=== PATIENT | female | born 1940 | race Caucasian/White ===

== ENCOUNTER 2019-08-25 09:19 | Outpatient (CLI) | payer MEDICARE, SELFPAY ==
--- NOTE | 2019-08-25 09:26 | XR_ITS ---
WS: [id number] DEXA (DUAL ENERGY X-RAY ABSORPTIOMETRY) Bone mineral density was performed using a Paratek machine. HISTORY: OSTEOPOROSIS COMPARISON: None available. Lumbar spine BMD (L1-L4): 1.053 g/cm2 T score: -1.1 Z score: 1.2 Total hip BMD: Left: 0.819 g/cm2. T score: -1.5 Z score: 0.9 Right: 0.787 g/cm2. T score: -1.8 Z score: 0.6 10 year probability of a major osteoporotic fracture is 25%. Mild RIGHT convex curvature of the lumbar spine. XR/XR DEXA axial skeleton* [id number] IMPRESSION: OSTEOPENIA based upon the WHO classification for females.
== END 2019-08-25 09:20 | disposition home or self-care (01) ==
LOC: RADWPI 09:25
PROVIDERS: Family Provider Nurse Practitioner Family; PCP Physician Assistant; Visit Provider Physician Assistant
DX: M81.0 Age-related osteoporosis without current pathological fracture (principal); M85.80 Other specified disorders of bone density and structure, unspecified site
CPT/HCPCS: 77080

== ENCOUNTER → 2020-05-12 12:54 | Outpatient (BNVA) | payer MEDICARE, SELFPAY | PROVIDERS: Family Provider Nurse Practitioner Family; PCP Physician Assistant; Visit Provider Internal Medicine Rheumatology | DX: M19.041 Primary osteoarthritis, right hand (principal); Z79.899 Other long term (current) drug therapy; Z11.59 Encounter for screening for other viral diseases; Z11.1 Encounter for screening for respiratory tuberculosis; M19.042 Primary osteoarthritis, left hand; R79.82 Elevated C-reactive protein (CRP); R70.0 Elevated erythrocyte sedimentation rate | CPT/HCPCS: 36415; 82306; 86480; 86704; 86803; 87340; 99204 ==

== ENCOUNTER 2020-05-16 14:11 | Outpatient (CLI) | payer MEDICARE, SELFPAY ==
--- NOTE | 2020-05-16 14:21 | XR_ITS ---
WS: [id number] LEFT HAND: 3 VIEW(S) TECHNIQUE: PA, oblique and lateral. HISTORY: rheumatoid arthritis COMPARISON: None available. No acute fracture or dislocation. Moderate diffuse interphalangeal joint space narrowing. No metacarpal head erosions. Severe degenerat lary changes at the first metacarpal phalangeal joint. No subluxation. XR/XR hand LT min 3V* [id number] IMPRESSION: Moderately severe changes of osteoarthritis. No erosions.
--- NOTE | 2020-05-16 14:21 | XR_ITS ---
WS: [id number] RIGHT HAND: 3 VIEW(S) TECHNIQUE: PA, oblique and lateral. HISTORY: rheumatoid arthritis COMPARISON: None available. No acute fracture or dislocation. Moderate interphalangeal joint space narrowing. There is also mild narrowing at the metacarpal phalan geal joint spaces. Slight subluxation involving the third metacarpal phalangeal joint. Advanced degen erative changes of osteoarthritis at the first carpometacarpal joint. XR/XR hand RT min 3V* [id number] IMPRESSION: 1. Moderate osteoarthritis. 2. Degenerative changes at the metacarpal phalangeal joints. Joint space narro wing and partial subluxation at the third joint. These may be early changes of arthritis.
--- NOTE | 2020-05-16 14:21 | XR_ITS ---
WS: [id number] RIGHT FOOT: 3 VIEW(S) TECHNIQUE: AP, oblique and lateral. HISTORY: rheumatoid arthritis COMPARISON: None available. Hallux valgus deformity. Mild osteopenia. No erosions at the metatarsal heads. Mild narrowing of the interphalangeal joint spaces. Normal tarsal/metatarsal alignment. No soft tissue abnormality or bone destruction. Peripheral arterial calcifications. XR/XR foot RT min 3V* [id number] IMPRESSION: Osteopenia and mild hallux valgus deformity. No erosions.
--- NOTE | 2020-05-16 14:21 | XR_ITS ---
WS: [id number] LEFT FOOT: 3 VIEW(S) TECHNIQUE: AP, oblique and lateral. HISTORY: rheumatoid arthritis COMPARISON: None available. No acute fracture or dislocation. Normal tarsal/metatarsal alignment. Mild cortical indistinctness involving the fifth metatarsal head. Mild narrowing of the first metacar pal phalangeal joint. XR/XR foot LT min 3V* [id number] IMPRESSION: Early changes of possible rheumatoid arthritis at the fifth metacarpal head.
--- NOTE | 2020-05-16 14:21 | XR_ITS ---
WS: [id number] CHEST 2 VIEWS HISTORY: rheumatoid arthritis COMPARISON: 09/24/2014 Lungs: Clear with no abnormality. No pleural effusion or pneumothorax. Cardiac size: Normal. Mediastinum/Aorta: Mild atherosclerosis aorta. Moderate-sized hiatal hernia. Bones: Osteoporotic compression fracture by 50% at L1. XR/XR chest 2V* [id number] IMPRESSION: 1. Moderate-sized hiatal hernia. 2. No pulmonary nodules. 3. Chronic L1 compression fracture.
== END 2020-05-16 14:12 | disposition home or self-care (01) ==
LOC: RADWPI 14:16
PROVIDERS: PCP Physician Assistant; Visit Provider Internal Medicine Rheumatology
DX: M06.9 Rheumatoid arthritis, unspecified (principal); S32.010A Wedge compression fracture of first lumbar vertebra, initial encounter for closed fracture; X58.XXXA Exposure to other specified factors, initial encounter; M19.042 Primary osteoarthritis, left hand; M19.041 Primary osteoarthritis, right hand; M85.871 Other specified disorders of bone density and structure, right ankle and foot; K44.9 Diaphragmatic hernia without obstruction or gangrene; M20.11 Hallux valgus (acquired), right foot
CPT/HCPCS: 71046; 73130; 73630

== ENCOUNTER → 2020-08-22 14:55 | Outpatient (BNVA) | payer MEDICARE, SELFPAY | PROVIDERS: PCP Physician Assistant; Visit Provider Internal Medicine Rheumatology | DX: M06.00 Rheumatoid arthritis without rheumatoid factor, unspecified site (principal); Z79.899 Other long term (current) drug therapy; R79.82 Elevated C-reactive protein (CRP); R70.0 Elevated erythrocyte sedimentation rate; M19.041 Primary osteoarthritis, right hand; M19.042 Primary osteoarthritis, left hand | CPT/HCPCS: 36415; 80076; 82306; 82565; 85025; 86140; 99214 ==

== ENCOUNTER 2023-10-25 16:51 | Emergency (ER) | payer MEDICARE, SELFPAY ==
[2023-10-25 16:55] VITALS: BP 224/68; PULSE 78; RESP 18; TEMP 36.6; O2SAT 97
--- NOTE | 2023-10-25 17:49 | ECG_ITS ---
[facility] Test Date: 2023-10-25 Pat Name: Betty Shaffer Department: Room: Gender: Female Delivery Room Supervisor: : 1940 Requested By: Janet Lal Order Number: [id number] Nieves MD: Bebeto Beckett M.D. Measurements Intervals Donald Rate: 74 P: 41 GA: 149 QRS: 24 QRSD: 131 T: 0 QT: 398 QTc: 444 Interpretive Statements SINUS RHYTHM WITH OCCASIONAL VENTRICULAR PREMATURE COMPLEXES POSSIBLE LEFT ATRIAL ENLARGEMENT [-0.1mV P-WAVE IN V1/V2] INTRAVENTRICULAR CONDUCTION DELAY [130+ ms QRS DURATION] Compared to ECG 09/24/2014 15:15:41 Ventricular premature complex(es) now present Intraventricular conduction delay now present Right bundle-branch block no longer present Electronically Signed On 10-25-2023 23:12:11 CDT by Bebeto Beckett M.D. [id number] f
--- NOTE | 2023-10-25 17:49 | XRR_ITS ---
PROCEDURE INFORMATION: Exam: XR Chest Exam date and time: 10/25/2023 7:18 PM Age: 82 years old Clinical indication: Patient HX: C/O hypertension the past few days. TECHNIQUE: Imaging protocol: Radiologic exam of the chest. Views: 1 view. COMPARISON: CR XR chest 2V* [id number] 05/16/2020 2:26 PM FINDINGS: Lungs: Unremarkable. No consolidation. Pleural spaces: Unremarkable. No pleural effusion. No pneumothorax. Heart/Mediastinum: Hiatal hernia again noted. Bones/joints: Unremarkable. XR/XR chest 1V [id number] IMPRESSION: 1. No acute findings. 2. Hiatal hernia again noted.
[2023-10-25 18:40] VITALS: BP 200/68
[2023-10-25 18:57] LABS: Basophils % 0.8 %; Eosinophils # 0.1 10^3/uL (0.0-0.8); Eosinophils % 2.5 %; Hematocrit 38.2 % (36-47); Lymphocytes # 1.2 10^3/uL (0.8-4.8); Lymphocytes % 32.6 %; Mean Corpuscular HGB Conc 31.4 g/dL (30-55); Mean Corpuscular Hemoglobin 27.6 pg (27-33); Mean Platelet Volume 9.1 fL (7.4-10.4); Monocytes # 0.3 10^3/uL (0.2-0.9); Monocytes % 8.2 %; Neutrophils # 2.03 10^3/uL (1.8-7.7); Neutrophils % 55.6 %; Nucleated Red Blood Cells % 0 %; Platelet Count 282 10^3/cmm (157-399); Red Blood Count 4.34 10^6/uL (3.85-5.65); Red Cell Distribution Width 14.5 % (12.1-15.1); White Blood Count 3.65 10^3/uL (3.29-11.43)
[2023-10-25 19:14] LABS: Anion Gap 14.8 (5-19); Blood Urea Nitrogen 12 mg/dL (8-23); Calcium 9.8 mg/dL (8.5-10.5); Carbon Dioxide 28 mmol/L (22-29); Chloride 101 mmol/L (98-107); Creatinine Clr Calc Pharmacy 41.3935; Glucose 96 mg/dL (65-115); Osmolality Calculated 290 mOsm/kg (285-295); Potassium 3.8 mmol/L (3.5-5.1); Sodium 140 mmol/L (136-145)
[2023-10-25] MEDS: hyDRALAzine 20 mg/mL INJ 1 mL IVP (19:16)
[2023-10-25 19:17] LABS: Troponin(5th) Baseline 9 ng/L (0-10)
--- NOTE | 2023-10-25 19:30 | W.ED.GENADLT ---
HPI - General Adult General: Chief complaint: General Medical Stated complaint: elevated bp Time Seen by Provider: 10/25/23 19:00 History of Present Illness: Patient presents to the ER with complaints of high blood pressure dizziness lightheadedness. Patient denies shortness of breath and chest pain. Patient was noted at her last PCPs visit to have a blood pressure greater than 200. This was approximately 3 days ago. Patient was started on amlodipine 5 mg which daily which she has taken for the last 3 days. Upon talking to the patient at her previous ENT visit approximately 1 month ago her blood pressure was greater than 180. Patient also says she is under a lot of stress and has a lot of tension in her neck and has a tension headache. Review of Systems General: Reports: 10 or more systems reviewed and unremarkable except in HPI and below PFSH ED PFSH: Medical History Cellulitis of foot, left Swelling of left foot Osteopenia after menopause Osteoarthritis of hands, bilateral Elevated erythrocyte sedimentation rate Elevated C-reactive protein (CRP) Inflammatory arthritis Osteoporosis Joint pain Thyroid disease Vulva neoplasm surgical excision 2012 Surgical History History of hysterectomy History of knee surgery right Family History Other CAD (coronary artery disease) Hyperlipidemia Hypertension Rheumatoid arthritis Stroke Denies family history of Diabetes Lupus Chronic kidney disease (CKD) Cancer Social History Smoking and tobacco/nicotine status: never used tobacco/nicotine Alcohol intake: never Physical Exam Const: COMMON NORMALS: no acute distress, average body habitus, patient oriented x3, no limitations, healthy appearing, alert and well nourished HENMT: COMMON NORMALS: normocephalic, atraumatic, hearing grossly normal bilaterally, external ears normal, Normal external nose present, moist oral mucous membranes and oropharynx normal HEAD & SCALP: normocephalic and atraumatic NOSE: Normal external nose present EXTERNAL EAR: Yes external ears normal Neck/C-Spine: COMMON NORMALS: full ROM, no lymphadenopathy, supple (Tenderness along paraspinal musculature), no meningeal signs, no JVD and Thyroid normal THYROID: Thyroid normal Chest: COMMONS NORMALS: normal inspection of the chest and normal palpation of entire chest wall Resp: COMMON NORMALS: normal respiratory effort, No retractions, No use of accessory muscles and clear to auscultation bilaterally AUSCULTATION: clear to auscultation bilaterally Cardio: COMMON NORMALS: no JVD, regular rate, regular rhythm, S1 normal heart sound present, S2 normal heart sound present, No gallops present (Cardio), No clicks present (Cardio), No murmurs present (Cardio) and No rub (Cardio) RATE: regular rate RHYTHM: regular rhythm HEART SOUNDS: S1 normal heart sound present and S2 normal heart sound present GI: COMMON NORMALS: Normal to inspection, nondistended, normoactive bowel sounds present, Soft to palpation, non-tender and No hepatosplenomegaly present PALPATION: Yes Soft to palpation and Yes No hepatosplenomegaly present Neuro: COMMON NORMALS: patient oriented x3 SENSORIUM/ORIENTATION: Yes alert MENINGEAL SIGNS: Yes no meningeal signs Course Vital Signs: Vital signs: Vital Signs Temperature 97.9 F 10/25/23 16:55 Pulse Rate 92 10/25/23 20:04 Respiratory Rate 16 10/25/23 20:04 Blood Pressure 143/70 10/25/23 20:17 Pulse Oximetry 98 10/25/23 20:17 Oxygen Delivery Me thod Room Air 10/25/23 19:39 [facility] - General Adult Medical Decision Making Physical exam was performed lab work was noted all which was essentially benign. Patient's blood pressure upon arrival was 224/68. Patient was given 20 mg of hydralazine IV which lowered her blood pressure 155/72. Patient was given 15 mg Toradol for her headache. Her headache was a tension type headache. We will double the patient's amlodipine to 10 mg a day and put her on a 0.1 mg clonidine 1 p.o. every 6 hours as needed blood pressure greater than 160. Patient should keep her appointment with her PCP already scheduled in approximately 5 days. Differential Diagnosis High blood pressure, headache Medical Records I reviewed the patient's medical records. Lab Data I reviewed the patient's lab results. 10/25/23 18:36 10/25/23 18:36 Radiology Impressions Chest X-Ray 10/25/23 17:49 IMPRESSION: 1. No acute findings. 2. Hiatal hernia again noted. Laboratory Results WBC 3.65 10^3/uL (3.29-11.43) 10/25/23 18:36 RBC 4.34 10^6/uL (3.85-5.65) 10/25/23 18:36 Hgb 12.00 g/dL (11.27-16.99) 10/25/23 18:36 Hct 38.2 % (36-47) 10/25/23 18:36 MCV 88.0 fl (85-98) 10/25/23 18:36 MCH 27.6 pg (27-33) 10/25/23 18:36 MCHC 31.4 g/dL (30-55) 10/25/23 18:36 RDW 14.5 % (12.1-15.1) 10/25/23 18:36 Plt Count 282 10^3/cmm (157-399) 10/25/23 18:36 MPV 9.1 fL (7.4-10.4) 10/25/23 18:36 Neut % (Auto) 55.6 % 10/25/23 18:36 Lymph % (Auto) 32.6 % 10/25/23 18:36 Nicollet % (Auto) 8.2 % 10/25/23 18:36 Eos % (Auto) 2.5 % 10/25/23 18:36 Baso % (Auto) 0.8 % 10/25/23 18:36 Neut # (Auto) 2.03 10^3/uL (1.8-7.7) 10/25/23 18:36 Lymph # (Auto) 1.2 10^3/uL (0.8-4.8) 10/25/23 18:36 Nicollet # (Auto) 0.3 10^3/uL (0.2-0.9) 10/25/23 18:36 Eos # (Auto) 0.1 10^3/uL (0.0-0.8) 10/25/23 18:36 Baso # (Auto) 0.0 10^3/uL (0.0-0.1) 10/25/23 18:36 Nucleated RBC % (auto) 0 % 10/25/23 18: Nucleated RBCs # 0.0 /100WBC 10/25/23 18:36 Sodium 140 mmol/L (136-145) 10/25/23 18:36 Potassium 3.8 mmol/L (3.5-5.1) 10/25/23 18:36 Chloride 101 mmol/L (98-107) 10/25/23 18:36 Carbon Dioxide 28 mmol/L (22-29) 10/25/23 18:36 Anion Gap 14.8 (5-19) 10/25/23 18:36 BUN 12 mg/dL (8-23) 10/25/23 18:36 Creatinine 0.6 mg/dL (0.5-0.9) 10/25/23 18:36 GFR Calculation Not Reportable 10/25/23 18:36 Glucose 96 mg/dL (65-115) 10/25/23 18:36 Calculated Osmolality 290 mOsm/kg (285-295) 10/25/23 18:36 Calcium 9.8 mg/dL (8.5-10.5) 10/25/23 18:36 Troponin T Baseline 9 ng/L (0-10) 10/25/23 18:36 Urine Color Light yellow (Yellow) 10/25/23 19:15 Urine Appearance Clear (CLEAR) 10/25/23 19:15 Urine pH 7 (5-7) 10/25/23 19:15 Ur Specific Donnellson 1.005 (1.005-1.030) 10/25/23 19:15 Urine Protein Neg (Negative) 10/25/23 19:15 Urine Glucose (UA) Norm (Normal) 10/25/23 19:15 Urine Ketones Negative (Negative) 10/25/23 19:15 Urine Blood Neg (Negative) 10/25/23 19:15 Urine Nitrate Negative (Negative) 10/25/23 19:15 Urine Bilirubin Neg (Negative) 10/25/23 19:15 Urine Urobilinogen Neg mg/dL (Negative) 10/25/23 19:15 Ur Leukocyte Esterase Negative (Negative) 10/25/23 19:15 Urine RBC 0-4 /hpf (0-2) H 10/25/23 19:15 Urine WBC 0-4 /hpf (0-5) H 10/25/23 19:15 Ur Squamous Epith Cells 0-4 /hpf (0-5) H 10/25/23 19:15 Amorphous Sediment Not Reportable 10/25/23 19:15 Urine Bacteria Trace /hpf (NONE) 10/25/23 19:15 Urine Mucus Trace /hpf 10/25/23 19:15 All radiology interpretation(s) finalized by discharge Discharge Plan Discharge Patient Disposition: Home Clinical Impression: Tension headache Hypertension Qualifiers: Hypertension type: unspecified Qualified Code(s): I10 - Essential (primary) hypertension Condition: Stable Prescriptions: New clonidine HCl 0.1 mg tablet 0.1 mg PO Q4H PRN (Reason: Blood pressure greater than 160/100) Qty: 30 0RF No Action levocetirizine 5 mg tablet 5 mg PO DAILY hydroxychloroquine 200 mg tablet 200 mg PO DAILY sertraline 50 mg tablet 50 mg PO DAILY azelastine 137 mcg (0.1 %) aerosol,spray 2 spray intranasal fluticasone propionate 50 mcg/actuation spray,suspension 1 spray intranasal DAILY Rx Instructions: administer into each nostril levothyroxine 75 mcg tablet 75 mcg PO prednisone 20 mg tablet 40 mg PO DAILY 3 Days Qty: 6 0RF amoxicillin-pot clavulanate [Augmentin] 500-125 mg tablet 1 tab PO BID Qty: 14 0RF diclofenac sodium 1 % gel 4 g topical QID Qty: 100 3RF Rx Instructions: apply to affected area as needed Discharge Orders: Discharge ED (Routine); Ordered 10/25/23 Ordered By: Estevan Zapata Referrals: Lakisha Ya PA [Primary Care Provider] - 1 week Patient Instructions: Tension Headache (ED), Hypertension in the Older Adult (ED) Activity Restrictions/Additional Instructions: Your blood pressure in the eye was significantly elevated at 224 mmHg systolic. You are given 20 mg of hydralazine and your IV which lowered it to 155/72, you are sent home with 2 tablets of 0.1 mg clonidine to take if your blood pressure was greater than 160/100 and you will be provided with a prescription for more of these. You are also suggested to increase your amlodipine from 5 mg to 10 mg. Please keep your appointment with Lakisha Ya as already scheduled. Please keep a blood pressure log and take it with you to that appointment. Coding Level of Care Code ED Custom Feed Mill Operator for Lorenzo Beck
[2023-10-25 19:34] LABS: Bacteria Urine TRACE /hpf; Bilirubin Urine Neg (Negative); Blood Urine Neg (Negative); Glucose Urine UA Norm (Normal); Ketones Urine Negative (Negative); Leukocyte Esterase Urine Negative (Negative); Mucus Urine TRACE /hpf; Nitrate Urine Negative (Negative); Protein Urine Neg (Negative); RBC Urine 0-4 /hpf (0-2); Specific Gravity, Urine 1.005 (1.005-1.030); Squamous Epithelial Cell Urine 0-4 /hpf (0-5); Urine Appearance Clear (CLEAR); Urine Color Light yellow (Yellow); Urobilinogen Urine Neg (Negative); WBC Urine 0-4 /hpf (0-5); pH Urine 7 (5-7)
[2023-10-25 19:39] VITALS: BP 155/72; PULSE 96; RESP 18; O2SAT 96
[2023-10-25] MEDS: ketorolac 30 mg/mL INJ 15 MG IVP (19:44)
--- NOTE | 2023-10-25 19:47 | PC.NURSE ---
Patient c/o neck pain that she reports as chronic in nature. Reports that she usually takes Ibu at home.
[2023-10-25 20:04] VITALS: BP 143/62; PULSE 92; RESP 16; O2SAT 96
[2023-10-25 20:17] VITALS: BP 143/70; O2SAT 98
== END 2023-10-25 20:18 | disposition home or self-care (01) ==
PROVIDERS: Emergency Medicine; Emergency Provider Emergency Medicine; PCP Physician Assistant
DX: G44.209 Tension-type headache, unspecified, not intractable (principal); I10 Essential (primary) hypertension
CPT/HCPCS: 36415; 71045; 80048; 81001; 84484; 85025; 93005; 96374; 96375; 99285; J0360; J1885

== ENCOUNTER → 2024-03-27 10:44 | Outpatient (BNVA) | payer MEDICARE, SELFPAY | PROVIDERS: PCP Family Medicine; Visit Provider Family Medicine | DX: E03.9 Hypothyroidism, unspecified (principal) | CPT/HCPCS: 80053; 84439; 84443; 85025 ==

== ENCOUNTER → 2024-05-11 09:20 | Outpatient (BNVA) | payer MEDICARE, SELFPAY | PROVIDERS: PCP Family Medicine; Visit Provider Family Medicine | DX: I10 Essential (primary) hypertension (principal) | CPT/HCPCS: 80048 ==

== ENCOUNTER → 2025-03-05 09:28 | Outpatient (BNVA) | payer MEDICARE, SELFPAY | PROVIDERS: PCP Family Medicine; Visit Provider Family Medicine | DX: E03.9 Hypothyroidism, unspecified (principal); I10 Essential (primary) hypertension | CPT/HCPCS: 80053; 80061; 84439; 84443; 85025 ==

== ENCOUNTER → 2025-03-24 14:18 | Outpatient (BNVA) | payer MEDICARE, SELFPAY | PROVIDERS: PCP Family Medicine; Visit Provider Nurse Practitioner Family | DX: M06.9 Rheumatoid arthritis, unspecified (principal); I99.8 Other disorder of circulatory system; L57.8 Other skin changes due to chronic exposure to nonionizing radiation; L81.4 Other melanin hyperpigmentation; L82.1 Other seborrheic keratosis; L57.0 Actinic keratosis | CPT/HCPCS: 17000; 99203 ==

== ENCOUNTER 2025-04-15 10:38 | Emergency (ER) | payer MEDICARE, SELFPAY ==
--- OUTSIDE RECORDS SUMMARY | 2025-04-15 10:45 | XMS_ITS | Encounter Summary ---
Author Organization [facility] Address [address] [place] [address] Care Team Providers Care Transportation Associate Name Role Phone HAYLEE Moura Sr., Govind Tejeda Primary Care Pro vider Encounter Details Date Type Department Care Team (Latest Contact Info) Description 04/20/2014 Ancillary Orders [facility] Pre-Registration [place] CALL TO MAKE APPOINTMENT ONLY [address] [place] [address] Dawson Fajardo MD NO ADDRESS ON FILE Other screening mammogram (Primary Dx); Lump or mass in breast Social History Tobacco Use Types Packs/Day Years Used Date Smoking Tobacco: Former Smokeless Tobacco: Never Alcohol Use Standard Drinks/Week Comments Yes 5.8 (1 standard drink = 0.6 oz p ure alcohol) Comments No Sex and Gender Information Value Date Recorded Sex Assigned at Not on file Legal Sex Female 3:34 AM PATENT CHEMIST Gender Identity Not on file Sexual Orientation Not on file Occupation Industry Job Start Date Job End Date Not on file Not on file Not on file Not on file Not on file Not on file Not on file Not on file documented as of this encounter Plan of Treatment Not on file documented as of this encounter Visit Diagnoses Diagnosis Other screening mammogram- Primary Lump or mass in breast documented in this encounter Care Teams Transportation Associate Relationship Specialty Start Date End Date Govind Moura Sr., FNP [address] [place] [address] PCP - General NURSE PRACTITIONER 05/11/16 documented as of this encounter
--- OUTSIDE RECORDS SUMMARY | 2025-04-15 10:45 | XMS_ITS | Encounter Summary ---
Author Organization [facility] Address [address] [place] [address] Care Team Providers Care Labor Contract Analyst Name Role Phone Martell Tadeo, HAYLEE, Govind Tejeda Primary Care Pro vider Reason for Referral * Outpatient Services (Routine) - Closed Specialty Diagnoses / Procedures Referred By Contac t Referred To Contact Diagnoses Other screening mammogram Procedures MAMMO DIGITAL SCREEN BILAT Dawson Fajardo MD NO ADDRESS ON FILE Dawson Fajardo MD Referral ID Status Reason Start Date Expiration Date Visits Re quested Visits Authorized [id number] Closed 04/02/2012 04/02/2013 1 1 Encounter Details Date Type Department Care Team (Latest Contact Info) Description 04/02/2012 Ancillary Orders [facility] Pre-Registration [place] CALL TO MAKE APPOINTMENT ONLY [address] [place] [address] Dawson Fajardo MD NO ADDRESS ON FILE Other screening mammogram Social History Tobacco Use Types Packs/Day Years Used Date Smoking Tobacco: Former Alcohol Use Standard Drinks/Week Comments No 0 (1 standard drink = 0.6 oz pur e alcohol) Comments No Sex and Gender Information Value Date Recorded Sex Assigned at Not on file Legal Sex Female 3:34 AM PT SKILLED Gender Identity Not on file Sexual Orientation Not on file Occupation Industry Job Start Date Job End Date Not on file Not on file Not on file Not on file documented as of this encounter Plan of Treatment Not on file documented as of this encounter Results * MAMMO DIGITAL SCREEN BILAT (04/29/2012 8:59 AM CDT) Anatomical Region Laterality Modality Breast Bilateral Mammography Narrative 04/30/2012 2:03 PM CDT Bilateral Mammogram Reason for Exam: Screening Comparison: Comparison is made with the prior exam(s) dated 04.14.07 04.25.11 Findings: Bilateral CC and MLO views were obtained. This examination was reviewed with the aid of a computer-aided detection system(CAD). The breast tissue density is average. No significant new findings since the prior mammogram(s). Procedure Note Mary Dias MD - 04/30/2012 Bilateral Mammogram Reason for Exam: Screening Comparison: Comparison is made with the prior exam(s) dated 04.14.710 Findings: Bilateral CC and MLO views were obtained. This examination was reviewed with the aid of a computer-aided detectionsystem(CAD). The breast tissue density is average. No significant new findings since the prior mammogram(s). Dawson Fajardo MD MAMMO ORDERABLES Final Result documented in this encounter Visit Diagnoses Diagnosis Other screening mammogram Other screening mammogram documented in this encounter Care Teams Labor Contract Analyst Relationship Specialty Start Date End Date Martell Tadeo, HAYLEE [address] [place] [address] PCP - General NURSE PRACTITIONER 05/11/16 documented as of this encounter
--- OUTSIDE RECORDS SUMMARY | 2025-04-15 10:45 | XMS_ITS | Clinical Summary ---
Author Organization [facility] Address [address] [place]: Epic Prelude ADT [place] [address] Care Team Providers Care Echo Vascular Technologist Name Role Phone Martell Tadeo, HAYLEE, Govind Tejeda Primary Care Pro vider Allergies Active Allergy Reactions Criticality Noted Date Comments Atorvastatin Muscle Pain Low 12/02/2007 Rofecoxib Rash Low 12/02/2007 Sulfa (Sulfonamide Antibiotics) Unknown 11/13 Active Problems Problem Noted Date Diagnosed Date Unspecified hypothyroidism 12/02/2007 Immunizations Immunization Administration Dates Next Due (PNEUMOVAX 23)(50 YRS UP) PN EUMOCOCCAL POLYSACCHARIDE (PPV23) 0.5 ML, IM 03/26/2003 (TDVAX)(7 YRS UP) TETANUS AN D DIPHTHERIA TOXOIDS, ADSORBED (2 LF OF TETANUS TOXOID AND 2 LF OF DIPHTHERIA TOXOID), 0.5ML (PF), IM 03/26/2003 Family History Medical History Relation Name Comments Breast Cancer Other 1 M Aunt age 60's risk assessment to genetic counselor -see media tab Breast Cancer Other 2 M Cousins age: 40's Ovarian Cancer Neg Hx Relation Name Status Comments Other 1 M Aunt Other 2 M Cousins Social History Tobacco Use Types Packs/Day Years Used Date Smoking Tobacco: Former Smokeless Tobacco: Never Alcohol Use Standard Drinks/Week Comments Yes 5.8 (1 standard drink = 0.6 oz p ure alcohol) Comments Unknown Sex and Gender Information Value Date Recorded Sex Assigned at Not on file Legal Sex Female 5:[address]ER Gender Identity Not on file Sexual Orientation Not on file Plan of Treatment Health Maintenance Due Date Last Done Comments ZOSTER VACCINE (1 of 2) 1988 DTAP/TDAP/TD VACCINES (1 - Tdap) 03/27/2003 03/26/20 03 PNEUMOCOCCAL VACCINE 50+ YEA RS (2 of 2 - PCV) 03/26/2004 03/26/2003 OSTEOPOROSIS SCREENING 08/13/2012 08/13/2007, 2007 RSV VACCINE (60+ or ) (1 - 1-dose 75+ series) 2013 INFLUENZA VACCINE (#1) 2025 Procedures Procedure Name Priority Date/Time Associated Diagnosis Comments XR DEXA BONE DENSITY AXIAL 1 OR MORE SITES Routine 08/13/2007 10:[address]ANER from Last 3 Months or Most Recently Relevant to Health Maintenance Results * XR DEXA BONE DENSITY AXIAL 1 OR MORE SITES (08/13/2007 10:[address] CLEANER) Anatomical Region Laterality Modality Other Narrative 08/13/2007 10:[address] CLEANER 08/13/2007 Reason for Consultation: Osteopenia. For determination and comparison of bone mineral density. AXIAL DEXA EXAMINATION OF THE LUMBAR SPINE AND LEFT PROXIMAL FEMUR: The following absorptiometry data were obtained. Technical quality of the examinations is satisfactory. Serial examination #2 with comparison to a prior study of 07/24/2005. Images of the lumbar spine demonstrate scoliotic and degenerative changes with spurious elevation of bone density at various levels. Bone density has been reported previously in the upper lumbar spine to minimize effects of spurious elevation. BMD Adult Age-Matched Region g/cm2 T Z L1-L2 0.907 -2.2 -0.2 L1-L4 0.990 -1.6 0.4 Neck 0.797 -1.7 0.1 Total hip 0.923 -0.7 1.0 IMPRESSION: Bone mineral density lies in the markedly osteopenic range in the upper lumbar spine below the average of the patient's age-matched control, fairly stable at all sites in comparison to the previous examination. Bone mineral density lies slightly below the average of the patient's age- matched control. jaw Procedure Note Tristan Downey - 09/28/2022 08/13/2007 Reason for Consultation: Osteopenia. For determination and comparison ofbone mineral density. AXIAL DEXA EXAMINATION OF THE LUMBAR SPINE AND LEFT PROXIMAL FEMUR: The following absorptiometry data were obtained. Technical quality of theexaminations is satisfactory. Serial examination #2 with comparison to a prior study of 07/24/2005. Images of the lumbar spine demonstrate scoliotic and degenerative changeswith spurious elevation of bone density at various levels. Bone density has been reported previously inthe upper lumbar spine to minimize effects of spurious elevation. BMD Adult Age-Matched Region g/cm2 T Z L1-L2 0.907 -2.2 -0.2 L1-L4 0.990 -1.6 0.4 Neck 0.797 -1.7 0.1 Total hip 0.923 -0.7 1.0 IMPRESSION: Bone mineral density lies in the markedly osteopenic range in the upperlumbar spine below the average of the patient's age-matched control, fairly stable at all sites incomparison to the previous examination. Bone mineral density lies slightly below the average of the patient'naina-matched control. jaw us Braulio Pimentel Jr., MD DIAGNOSTIC IMAGING ORDERABL ES Final Result from Last 3 Months or Most Recently Relevant to Health Maintenance Care Teams Echo Vascular Technologist Relationship Specialty Start Date End Date Martell Tadeo, HAYLEE [address] [place] [address] PCP - General NURSE PRACTITIONER 05/11/16
--- OUTSIDE RECORDS SUMMARY | 2025-04-15 10:45 | XMS_ITS | Encounter Summary ---
Author Organization [facility] Address [address] [place] [address] Care Team Providers Care Learning Disabilities Teacher Name Role Phone Martell Tadeo, HAYLEE, Govind Tejeda Primary Care Pro vider Reason for Referral * Outpatient Services (Routine) - Closed Specialty Diagnoses / Procedures Referred By Contac t Referred To Contact Diagnoses Other screening mammogram Procedures MAMMO SCREENING BILAT Dawson Fajardo MD NO ADDRESS ON FILE Referral ID Status Reason Start Date Expiration Date Visits Re quested Visits Authorized [id number] Closed 04/19/2010 10/16/2010 1 1 Encounter Details Date Type Department Care Team (Late st Contact Info) Description 04/19/2010 Ancillary Orders [facility] [address] [id number] Dawson Fajardo MD NO ADDRESS ON FILE Other screening mammogram Social History Tobacco Use Types Packs/Day Years Used Date Smoking Tobacco: Never Assessed Comments No Sex and Gender Information Value Date Recorded Sex Assigned at Not on file 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 This examination was reviewed with the aid of a computer-aided detection system(CAD). The breast tissue density is average. Asymmetric breast tissue is noted. No significant new findings since the prior mammogram(s). Procedure Note Kathleen Andre MD - 04/25/2010 Bilateral Mammogram Reason for Exam: Screening Comparison: Comparison is made with the prior exam(s) dated 04.12.06,04.21.09 Findings: Bilateral CC and MLO views were obtained. This examination was reviewed with the aid of a computer-aided detectionsystem(CAD). The breast tissue density is average. Asymmetric breast tissue is noted. No significant new findings since the prior mammogram(s). Dawson Fajardo MD MAMMO ORDERABLES Final Result documented in this encounter Visit Diagnoses Diagnosis Other screening mammogram Other screening mammogram documented in this encounter Care Teams Learning Disabilities Teacher Relationship Specialty Start Date End Date Martell Tadeo, HAYLEE [address] [place] [address] PCP - General NURSE PRACTITIONER 05/11/16 documented as of this encounter
--- OUTSIDE RECORDS SUMMARY | 2025-04-15 10:45 | XMS_ITS | Encounter Summary ---
Author Organization [facility] Address [address] [place] [address] Care Team Providers Care Independent Driver Name Role Phone HAYLEE Moura Sr., Michael Dave Primary Care Pro vider Encounter Details Date Type Department Care Team (Late st Contact Info) Description 03/16/[address] 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 This examination was reviewed with the aid of a computer-aided detection system(CAD). The breast tissue density is average. Stable asymmetric tissue right breast. No significant new findings since the prior mammogram(s). Procedure Note Jovanni Frost MD - 04/22/2009 Bilateral Mammogram Reason for Exam: Screening Comparison: Comparison is made with the prior exam(s) dated 2004+2007 Findings: Bilateral CC and MLO views were obtained. This examination was reviewed with the aid of a computer-aided detectionsystem(CAD). The breast tissue density is average. Stable asymmetric tissue right breast. No significant new findings since the prior mammogram(s). us Dawson Fajardo MD MAMMO ORDERABLES Final Result documented in this encounter Visit Diagnoses Diagnosis Other screening mammogram Other screening mammogram documented in this encounter Care Teams Independent Driver Relationship Specialty Start Date End Date Martell Tadeo, HAYLEE [address]oving [address] [place] [address] PCP - General NURSE PRACTITIONER 05/11/16 documented as of this encounter
--- OUTSIDE RECORDS SUMMARY | 2025-04-15 10:45 | XMS_ITS | Encounter Summary ---
Author Organization [facility] Address [address] [place] [address] Care Team Providers Care Principal Biostatistician Name Role Phone HAYLEE Moura Sr., Govind Tejeda Primary Care Pro vider Reason for Referral * Outpatient Services (Routine) - Closed Specialty Diagnoses / Procedures Referred By Contac t Referred To Contact Diagnoses Encounter for screening mammogram for malignant neoplasm of breast Procedures MAMMO DIGITAL SCREEN BILAT Dawson Fajardo MD [facility] Pre-Registration [place] CALL TO MAKE APPOINTMENT ONLY [address] [place] [address] Phone: tel: fax: Referral ID Status Reason Start Date Expiration Date V isits Requested Visits Authorized [id number] Closed [facility] ([facility] 04/28/2015 05/28/2016 1 1 Encounter Details Date Type Department Care Team (Latest Contact Info) Description 04/28/2015 Ancillary Orders [facility] Pre-Registration [place] CALL TO MAKE APPOINTMENT ONLY [address] [place] [address] Dawson Fajardo MD NO ADDRESS ON FILE Encounter for screening mammogram for malignant neoplasm of breast (Primary Dx) Social History Tobacco Use Types Packs/Day Years Used Date Smoking Tobacco: Former Smokeless Tobacco: Never Alcohol Use Standard Drinks/Week Comments Yes 5.8 (1 standard drink = 0.6 oz p ure alcohol) Comments No Sex and Gender Information Value Date Recorded Sex Assigned at Not on file 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 Gender Identity Not on file Sexual Orientation [...] encounter Results * MAMMO DIGITAL SCREEN BILAT (06/06/2015 2:05 PM CDL DEDICATED TRUCK DRIVER) Anatomical Region Laterality Modality Breast Bilateral Mammography Narrative 06/07/2015 9:38 AM CDL DEDICATED TRUCK DRIVER Bilateral Mammogram Reason for Exam: Screening Comparison: Compared to: 05/17/2014 MAMMO DIGITAL SCREEN BILAT, 05/13/2013 MAMMO DIGITAL SCREEN BILAT, 04/29/2012 MAMMO DIGITAL SCREEN BILAT, 04/25/2011 MAMMO DIGITAL SCREEN BILAT, 04/24/2010 MAMMO SCREENING BILAT, 04/21/2009 MAMMO SCREENING BILAT Findings: Bilateral CC and MLO views were obtained. This examination was reviewed with the aid of a computer-aided detection system(CAD). The breast tissue density is average. Asymmetry appears stable.Bilateral breast nodularity is stable. No significant new findings since the prior mammogram(s). Dawson Fajardo MD MAMMO ORDERABLES Final Result documented in this encounter Visit Diagnoses Diagnosis Encounter for screening mammogram for malignant neoplasm of breast- Primary Other screening mammogram Encounter for screening mammogram for malignant neoplasm of breast Other screening mammogram documented in this encounter Care Teams Principal Biostatistician Relationship Specialty Start Date End Date Martell Tadeo, HAYLEE [address] [place] [address] PCP - General NURSE PRACTITIONER 05/11/16 documented as of this encounter
--- OUTSIDE RECORDS SUMMARY | 2025-04-15 10:45 | XMS_ITS | Encounter Summary ---
Author Organization [facility] Address [address] [place] [address] Care Team Providers Care Staple Shear Operator Name Role Phone Martell Tadeo, HAYLEE, Govind Tejeda Primary Care Pro vider Reason for Referral * Outpatient Services (Routine) - Closed Specialty Diagnoses / Procedures Referred By Contac t Referred To Contact Diagnoses Other screening mammogram Procedures MAMMO DIGITAL SCREEN BILAT Dawson Fajardo MD NO ADDRESS ON FILE Referral ID Status Reason Start Date Expiration Date Visits Re quested Visits Authorized [id number] Closed 04/02/2011 04/01/2012 1 1 Encounter Details Date Type Department Care Team (Latest Contact Info) Description 04/02/2011 Ancillary Orders [facility] Pre-Registration [place] CALL TO MAKE APPOINTMENT ONLY [address] [place] [phone] Dawson Fajardo MD NO ADDRESS ON FILE Other screening mammogram Social History Tobacco Use Types Packs/Day Years Used Date Smoking Tobacco: Never Assessed Comments No Sex and Gender Information Value Date Recorded Sex Assigned at Not on file 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 This examination was reviewed with the aid of a computer-aided detection system(CAD). The breast tissue density is average. No significant new findings since the prior mammogram(s). Procedure Note Mary Dias MD - 04/26/2011 Bilateral Mammogram Reason for Exam: Screening Comparison: Comparison is made with the prior exam(s) dated 04.14.07 Findings: Bilateral CC and MLO views were obtained. This examination was reviewed with the aid of a computer-aided detectionsystem(CAD). The breast tissue density is average. No significant new findings since the prior mammogram(s). us Dawson Fajardo MD MAMMO ORDERABLES Final Result documented in this encounter Visit Diagnoses Diagnosis Other screening mammogram Other screening mammogram documented in this encounter Care Teams Staple Shear Operator Relationship Specialty Start Date End Date Martell Tadeo, HAYLEE [address] [place] [address] PCP - General NURSE PRACTITIONER 05/11/16 documented as of this encounter
--- OUTSIDE RECORDS SUMMARY | 2025-04-15 10:45 | XMS_ITS | Encounter Summary ---
Author Organization [facility] Address [address] [place] [address] Care Team Providers Care Radio Mechanic Name Role Phone Martell Tadeo, HAYLEE, Govind Tejeda Primary Care Pro vider Reason for Referral * Outpatient Services (Routine) - Closed Specialty Diagnoses / Procedures Referred By Contac t Referred To Contact Diagnoses Breast cancer screening Procedures MAMMO SCRN BILAT 3D ELVIA W OR WO CAD MAMMO SCREEN BILAT W OR WO CAD Dawson Fajardo MD Referral ID Status Reason Start Date Expiration Date Visits Re quested Visits Authorized [id number] Closed 05/22/2017 06/22/2018 1 1 PERSON Encounter Details Date Type Department Care Team (Latest Contact Info) Description 05/22/2017 Ancillary Orders [facility] Pre-Registration [place] CALL TO MAKE APPOINTMENT ONLY [address] [place] [address] Dawson Fajardo MD NO ADDRESS ON FILE Breast cancer screening Social History Tobacco Use Types Packs/Day Years Used Date Smoking Tobacco: Former Smokeless Tobacco: Never Alcohol Use Standard Drinks/Week Comments Yes 5.8 (1 standard drink = 0.6 oz p ure alcohol) Comments No Sex and Gender Information Value Date Recorded Sex Assigned at Not on file 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 Sex Female 3:34 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 Gender Identity Not on file Sexual Orientation Not on file Occupation Industry Job Start Date Job End Date Not on file Not on file Not on file Not on file Not on file Not on file Not on file Not on file documented as of this encounter Plan of Treatment Not on file documented as of this encounter Results * MAMMO SCRN BILAT 3D ELVIA W OR WO CAD (06/24/2017 1:12 PM DISH PERSON) Anatomical Region Laterality Modality Breast Bilateral Mammography Narrative 06/25/2017 7:46 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 Bilateral Mammogram Reason for Exam: Screening Comparison: Compared to: 06/11/2016 MAMMO DIGITAL SCREEN BILAT, 06/06/2015 MAMMO DIGITAL SCREEN BILAT, 05/17/2014 MAMMO DIGITAL SCREEN BILAT, 05/13/2013 MAMMO DIGITAL SCREEN BILAT, and 04/29/2012 MAMMO DIGITAL SCREEN BILAT Technique: 3D MLO and CC digital tomosynthesis images were acquired and synthesized 2D images (C view) were generated. This digital mammogram was also analyzed by the Computer Aided Detection System CAD). Breast Composition: There are scattered areas of fibroglandular density. There are no suspicious masses, areas of architectural distortions, or microcalcifications to suggest malignancy. No significant new findings since the prior mammogram(s). us Dawson Fajardo MD MAMMO ORDERABLES Final Result documented in this encounter Visit Diagnoses Diagnosis Breast cancer screening Breast screening, unspecified Breast cancer screening Breast screening, unspecified documented in this encounter Care Teams Radio Mechanic Relationship Specialty Start Date End Date Martell Tadeo, HAYLEE Loving [address] [place] [address] PCP - General NURSE PRACTITIONER 05/11/16 documented as of this encounter
--- OUTSIDE RECORDS SUMMARY | 2025-04-15 10:45 | XMS_ITS | Encounter Summary ---
Author Organization [facility] Address [address] [place] [address] Care Team Providers Care Morning Nanny Name Role Phone HAYLEE Moura Sr., Michael Dave Primary Care Pro vider Encounter Details Date Type Department Care Team (Latest Contact Info) Description 07/26/2003 Outpatient [facility] [address] [place] [address] Brendan West MD NO ADDRESS ON FILE PERIPHERAL VERTIGO NOS (Primary Dx); HYPERLIPIDEMIA NEC/NOS; HYPOTHYROIDISM NOS Social History Tobacco Use Types Packs/Day Years Used Date Smoking Tobacco: Never Assessed Comments Unknown Sex and Gender Information Value Date Recorded Sex Assigned at Not on file 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
--- OUTSIDE RECORDS SUMMARY | 2025-04-15 10:45 | XMS_ITS | Encounter Summary ---
Author Organization [facility] Address [address] [place] [address] Care Team Providers Care Community Fundraiser Name Role Phone HAYLEE Moura Sr., Michael Dave Primary Care Pro vider Reason for Referral * Outpatient Services (Routine) - Closed Specialty Diagnoses / Procedures Referred By Contac t Referred To Contact Diagnoses Lump or mass in breast Procedures MAMMO DIGITAL SCREEN BILAT Dawson Fajardo MD NO ADDRESS ON FILE [facility] Pre-Registration [place] CALL TO MAKE APPOINTMENT ONLY [address] [place] [address] Phone: tel: fax: Referral ID Status Reason Start Date Expiration Date Visits Re quested Visits Authorized [id number] Closed 05/17/2014 06/17/2015 1 1 Encounter Details Date Type Department Care Team (Latest Contact Info) Description 05/17/2014 Ancillary Orders [facility] Pre-Registration [place] CALL TO MAKE APPOINTMENT ONLY [address] [place] [address] Dawson Fajardo MD NO ADDRESS ON FILE Lump or mass in breast (Primary Dx) Social History Tobacco Use Types Packs/Day Years Used Date Smoking Tobacco: Former Smokeless Tobacco: Never Alcohol Use Standard Drinks/Week Comments Yes 5.8 (1 standard drink = 0.6 oz p ure alcohol) Comments No Sex and Gender Information Value Date Recorded Sex Assigned at Not on file 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 Procedure Note Kennedy Barker MD - 05/18/2014 Bilateral Mammogram Reason for Exam: Screening Comparison: Compared to: 05/13/2013 MAMMO DIGITAL SCREEN BILAT, 04/29/2012MAMMO DIGITAL SCREEN BILAT, 04/25/2011 MAMMO DIGITAL SCREEN BILAT,04/24/2010 MAMMO SCREENING BILAT, 04/21/2009 MAMMO SCREENING BILAT Findings: Bilateral CC and MLO views were obtained. This examination was reviewed with the aid of a computer-aided detectionsystem(CAD). The breast tissue density is average. Asymmetry appears stable.Bilateralbreast nodularity is stable. No significant new findings since the prior mammogram(s). Dawson Fajardo MD MAMMO ORDERABLES Final Result documented in this encounter Visit Diagnoses Diagnosis Lump or mass in breast Lump or mass in breast- Primary documented in this encounter Care Teams Community Fundraiser Relationship Specialty Start Date End Date Govind Moura Sr., FNP [address] [place] [address] PCP - General NURSE PRACTITIONER 05/11/16 documented as of this encounter
--- OUTSIDE RECORDS SUMMARY | 2025-04-15 10:45 | XMS_ITS | Encounter Summary ---
Author Organization [facility] Address [address] [place] [address] Care Team Providers Care Bilingual Sales Consultant Name Role Phone HAYLEE Moura Sr., Michael Dave Primary Care Pro vider Reason for Referral * Outpatient Services (Routine) - Closed Specialty Diagnoses / Procedures Referred By Contac t Referred To Contact Diagnoses Other screening mammogram Procedures MAMMO DIGITAL SCREEN BILAT Govind Moura Sr., FNP [address] [place] [address] Phone: tel: fax: [facility] Pre-Registration [place] CALL TO MAKE APPOINTMENT ONLY [address] [place] [address] Phone: tel: fax: Referral ID Status Reason Start Date Expiration Date V isits Requested Visits Authorized [id number] Closed [facility]EDULE ([facility] 04/29/2013 05/30/2014 1 1 Encounter Details Date Type Department Care Team (Latest Contact Info) Description 04/29/2013 Ancillary Orders [facility] Pre-Registration [place] CALL TO MAKE APPOINTMENT ONLY [address] [place] [address] Govind Moura Sr., FNP [address] [place] [address] Other screening mammogram (Primary Dx) Social History Tobacco Use Types Packs/Day Years Used Date Smoking Tobacco: Former Alcohol Use Standard Drinks/Week Comments No 0 (1 standard drink = 0.6 oz pur e alcohol) Comments No Sex and Gender Information Value Date Recorded Sex Assigned at Not on file Legal Sex Female 3:34 AM BUSINESS CONTINUITY COORDINATOR Gender Identity Not on file Sexual Orientation Not on file Occupation Industry Job Start Date Job End Date Not on file Not on file Not on file Not on file documented as of this encounter Plan of Treatment Not on file documented as of this encounter Results * MAMMO DIGITAL SCREEN BILAT (05/13/2013 12:57 PM CDT) Anatomical Region Laterality Modality Breast Bilateral Mammography Narrative 05/14/2013 5:39 PM CDT Bilateral Mammogram Reason for Exam: Screening Comparison: Compared to: 04/29/2012 MAMMO DIGITAL SCREEN BILAT, 04/25/2011 MAMMO DIGITAL SCREEN BILAT, 04/24/2010 MAMMO SCREENING BILAT, 04/21/2009 MAMMO SCREENING BILAT Findings: Bilateral CC and MLO views were obtained. This examination was reviewed with the aid of a computer-aided detection system(CAD). The breast tissue density is average. No significant new findings since the prior mammogram(s). Procedure Note Kimberley Watt MD - 05/14/2013 Bilateral Mammogram Reason for Exam: Screening Comparison: Compared to: 04/29/2012 MAMMO DIGITAL SCREEN BILAT, 04/25/2011MAMMO DIGITAL SCREEN BILAT, 04/24/2010 MAMMO SCREENING BILAT, 04/21/2009MAMMO SCREENING BILAT Findings: Bilateral CC and MLO views were obtained. This examination was reviewed with the aid of a computer-aided detectionsystem(CAD). The breast tissue density is average. No significant new findings since the prior mammogram(s). HAYLEE Ayala Sr. MAMMO ORDERABLES Final Result documented in this encounter Visit Diagnoses Diagnosis Other screening mammogram- Primary Other screening mammogram documented in this encounter Care Teams Bilingual Sales Consultant Relationship Specialty Start Date End Date Govind Moura Sr., FNP [address] [place] [address] PCP - General NURSE PRACTITIONER 05/11/16 documented as of this encounter
--- OUTSIDE RECORDS SUMMARY | 2025-04-15 10:46 | XMS_ITS | Encounter Summary ---
Author Organization [facility] Address [address] [place] [address] Care Team Providers Care Director Of Security Name Role Phone HAYLEE Moura Sr., Michael Dave Primary Care Pro vider Encounter Details Date Type Department Care Team (Late st Contact Info) Description 02/26/2000 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
--- OUTSIDE RECORDS SUMMARY | 2025-04-15 10:46 | XMS_ITS | Encounter Summary ---
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) Social History Tobacco Use Types Packs/Day Years Used Date Smoking Tobacco: Never Assessed Comments Unknown Sex and Gender Information Value Date Recorded Sex Assigned at Not on file 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
--- OUTSIDE RECORDS SUMMARY | 2025-04-15 10:46 | XMS_ITS | Encounter Summary ---
Author Organization [email or web address] Address [address] [place] [address] Care Team Providers Care Manual Equipment Mechanic Name Role Phone HAYLEE Moura Sr., Michael Dave Primary Care Pro vider Encounter Details Date Type Department Care Team (Latest Contact Info) Description 01/27/2004 Outpatient Historical [facility] TRIM LINE WORKER 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
--- OUTSIDE RECORDS SUMMARY | 2025-04-15 10:46 | XMS_ITS | Encounter Summary ---
Author Organization [facility] Address [address] [place] [address] Care Team Providers Care Film Editor Supervisor Name Role Phone HAYLEE Moura Sr., Michael Dave Primary Care Pro vider Encounter Details Date Type Department Care Team (Latest Contact Info) Description 12/27/2003 Outpatient Historical [facility] [address] [place] [address] Boo Reyes MD NO ADDRESS ON FILE SCREENING MAL NEOP-COLON (Primary Dx) Social History Tobacco Use Types Packs/Day Years Used Date Smoking Tobacco: Never Assessed Comments Unknown Sex and Gender Information Value Date Recorded Sex Assigned at Not on file Legal Sex Female 3:34 AM 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
--- OUTSIDE RECORDS SUMMARY | 2025-04-15 10:46 | XMS_ITS | Encounter Summary ---
Author Organization 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
--- OUTSIDE RECORDS SUMMARY | 2025-04-15 10:46 | XMS_ITS | Encounter Summary ---
Author Organization [facility] Address [address] [place] [address] Care Team Providers Care Physician Office Secretary Name Role Phone HAYLEE Moura Sr., Michael Dave Primary Care Pro vider Encounter Details Date Type Department Care Team (Latest Contact Info) Description 10/19/1998 Outpatient Historical [facility] Dermatology- [facility] [place] [address] [place] [address] Robert Crooks MD NO ADDRESS ON FILE Actinic keratosis (Primary Dx) Social History Tobacco Use Types Packs/Day Years Used Date Smoking Tobacco: Never Assessed Comments Unknown Sex and Gender Information Value Date Recorded Sex Assigned at Not on file Legal Sex Female 3:[address] INSTRUCTOR Gender Identity Not on file Sexual Orientation Not on file documented as of this encounter Plan of Treatment Not on file documented as of this encounter Visit Diagnoses Diagnosis Actinic keratosis- Primary documented in this encounter Care Teams Physician Office Secretary Relationship Specialty Start Date End Date Govind Moura Sr., FNP [address] [place] [address] PCP - General NURSE PRACTITIONER 05/11/16 documented as of this encounter
--- OUTSIDE RECORDS SUMMARY | 2025-04-15 10:46 | XMS_ITS | Encounter Summary ---
Author Organization [facility] Address [address] [place] [address] Care Team Providers Care Lifter Driver Name Role Phone HAYLEE Moura Sr., Michael Dave Primary Care Pro vider Encounter Details Date Type Department Care Team (Late st Contact Info) Description 02/26/2000 Outpatient Historical [facility] Social History Tobacco Use Types Packs/Day Years Used Date Smoking Tobacco: Never Assessed Comments Unknown Sex and Gender Information Value Date Recorded Sex Assigned at Not on file Legal Sex Female 3:34 AM PETROLEUM BLENDING PLANT OPERATOR Gender Identity Not on file Sexual Orientation Not on file documented as of this encounter Plan of Treatment Not on file documented as of this encounter Visit Diagnoses Not on filedocumented in this encounter Care Teams Lifter Driver Relationship Specialty Start Date End Date Govind Moura Sr., FNP [address] [place] [address] PCP - General NURSE PRACTITIONER 05/11/16 documented as of this encounter
--- OUTSIDE RECORDS SUMMARY | 2025-04-15 10:46 | XMS_ITS | Encounter Summary ---
Author Organization [facility] Address [address] [place] [address] Care Team Providers Care Pharmacy General Manager Name Role Phone HAYLEE Moura Sr., Govind Tejeda Primary Care Pro vider Encounter Details Date Type Department Care Team (Latest Contact Info) Description 08/31/2004 Outpatient [facility] [address] [place] [address] Brendan West MD NO ADDRESS ON FILE ACUTE PHARYNGITIS (Primary Dx); REFLUX ESOPHAGITIS Social History Tobacco Use Types Packs/Day Years Used Date Smoking Tobacco: Never Assessed Comments Unknown Sex and Gender Information Value Date Recorded Sex Assigned at Not on file Legal Sex Female 3:34 AM TOWING PILOT Gender Identity Not on file Sexual Orientation Not on file documented as of this encounter Plan of Treatment Not on file documented as of this encounter Visit Diagnoses Diagnosis Acute pharyngitis- Primary Reflux esophagitis documented in this encounter Care Teams Pharmacy General Manager Relationship Specialty Start Date End Date Govind Moura Sr., FNP [address] [place] [address] PCP - General NURSE PRACTITIONER 05/11/16 documented as of this encounter
--- OUTSIDE RECORDS SUMMARY | 2025-04-15 10:46 | XMS_ITS | Encounter Summary ---
Author Organization [facility] Address [address] [place] [address] Care Team Providers Care Snow Fence Erector Name Role Phone HAYLEE Moura Sr., Michael Dave Primary Care Pro vider Encounter Details Date Type Department Care Team (Latest Contact Info) Description 05/11/1999 Outpatient Historical [facility] [place] [address] [place] [address] Dawson Fajardo MD NO ADDRESS ON FILE Gynecologic examination (Primary Dx) Social History Tobacco Use Types Packs/Day Years Used Date Smoking Tobacco: Never Assessed Comments Unknown Sex and Gender Information Value Date Recorded Sex Assigned at Not on file Legal Sex Female 3:34 AM ANNUAL GIVING MANAGER Gender Identity Not on file Sexual Orientation Not on file documented as of this encounter Plan of Treatment Not on file documented as of this encounter Visit Diagnoses Diagnosis Gynecologic examination- Primary Gynecological examination documented in this encounter Care Teams Snow Fence Erector Relationship Specialty Start Date End Date Govind Moura Sr., FNP [address] [place] [address] PCP - General NURSE PRACTITIONER 05/11/16 documented as of this encounter
--- OUTSIDE RECORDS SUMMARY | 2025-04-15 10:46 | XMS_ITS | Encounter Summary ---
Author Organization [facility] Address [address] [place] [address] Care Team Providers Care Acoustic Warfare Analyst Name Role Phone HAYLEE Moura Sr., Michael Dave Primary Care Pro vider Encounter Details Date Type Department Care Team (Latest Contact Info) Description 04/12/2005 Outpatient Historical [facility] Terrance [address] [place] [address] [place] [address] Dawson Fajardo MD NO ADDRESS ON FILE SCREENING MAMM-MAILG NEOPL NEC (Primary Dx) Social History Tobacco Use Types Packs/Day Years Used Date Smoking Tobacco: Never Assessed Comments Unknown Sex and Gender Information Value Date Recorded Sex Assigned at Not on file Legal Sex Female 3:34 AM PRIMARY THERAPIST Gender Identity Not on file Sexual Orientation Not on file documented as of this encounter Plan of Treatment Not on file documented as of this encounter Visit Diagnoses Diagnosis Other screening mammogram- Primary documented in this encounter Care Teams Acoustic Warfare Analyst Relationship Specialty Start Date End Date Govind Moura Sr., FNP [address] [place] [address] PCP - General NURSE PRACTITIONER 05/11/16 documented as of this encounter
--- OUTSIDE RECORDS SUMMARY | 2025-04-15 10:46 | XMS_ITS | Encounter Summary ---
Author Organization [facility] Address [address] [place] [address] Care Team Providers Care Patternmaker Plastics Name Role Phone HAYLEE Moura Sr., Michael Dave Primary Care Pro vider Encounter Details Date Type Department Care Team (Latest Contact Info) Description 02/14/2000 Outpatient Historical [facility] [place] [address] [place] [address] Dawson Fajardo MD NO ADDRESS ON FILE Follow-up examination following surgery (Primary Dx) Social History Tobacco Use Types Packs/Day Years Used Date Smoking Tobacco: Never Assessed Comments Unknown Sex and Gender Information Value Date Recorded Sex Assigned at Not on file Legal Sex Female 3:34 AM CORRECTIONAL PROGRAM OFFICER Gender Identity Not on file Sexual Orientation Not on file documented as of this encounter Plan of Treatment Not on file documented as of this encounter Visit Diagnoses Diagnosis Follow-up examination following surgery- Primary documented in this encounter Care Teams Patternmaker Plastics Relationship Specialty Start Date End Date Govind Moura Sr., FNP [address] [place] [address] PCP - General NURSE PRACTITIONER 05/11/16 documented as of this encounter
--- OUTSIDE RECORDS SUMMARY | 2025-04-15 10:46 | XMS_ITS | Encounter Summary ---
Author Organization [facility] Address [address] [place] [address] Care Team Providers Care Hooking Machine Operator Name Role Phone HAYLEE Moura Sr., Michael Dave Primary Care Pro vider Encounter Details Date Type Department Care Team (Latest Contact Info) Description 12/15/1997 Outpatient Historical [facility] Endocrinology-[facility] [facility] [place] [address] [place] [address] Braulio Pimentel Jr., MD NO ADDRESS ON FILE Unspecified hypothyroidism (Primary Dx) Social History Tobacco Use Types Packs/Day Years Used Date Smoking Tobacco: Never Assessed Comments Unknown Sex and Gender Information Value Date Recorded Sex Assigned at Not on file Legal Sex Female 3:34 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
--- OUTSIDE RECORDS SUMMARY | 2025-04-15 10:46 | XMS_ITS | Encounter Summary ---
Author Organization [facility] Address [address] [place] [address] Care Team Providers Care Safety Equipment Testing Specialist Name Role Phone HAYLEE Moura Sr., Michael Dave Primary Care Pro vider Encounter Details Date Type Department Care Team (Latest Contact Info) Description 01/12/[address] [facility] [place] [address] [place] [address] Dawson Fajardo MD NO ADDRESS ON FILE Follow-up examination following surgery (Primary Dx) Social History Tobacco Use Types Packs/Day Years Used Date Smoking Tobacco: Never Assessed Comments Unknown Sex and Gender Information Value Date Recorded Sex Assigned at Not on file Legal Sex Female 3:34 AM STRETCH PRESS OPERATOR Gender Identity Not on file Sexual Orientation Not on file documented as of this encounter Plan of Treatment Not on file documented as of this encounter Visit Diagnoses Diagnosis Follow-up examination following surgery- Primary documented in this encounter Care Teams Safety Equipment Testing Specialist Relationship Specialty Start Date End Date Govind Moura Sr., FNP [address] [place] [address] PCP - General NURSE PRACTITIONER 05/11/16 documented as of this encounter
--- OUTSIDE RECORDS SUMMARY | 2025-04-15 10:46 | XMS_ITS | Encounter Summary ---
Author Organization [facility] Address [address] [place] [address] Care Team Providers Care Behavioral Health Clinician Name Role Phone HAYLEE Moura Sr., Govind Tejeda Primary Care Pro vider Encounter Details Date Type Department Care Team (Latest Contact Info) Description 03/13/2001 Outpatient [facility] [place] [address] [place] [address] Dawson Fajardo MD NO ADDRESS ON FILE Gynecologic examination (Primary Dx); Screening for malignant neoplasm of the rectum Social History Tobacco Use Types Packs/Day Years Used Date Smoking Tobacco: Never Assessed Comments Unknown Sex and Gender Information Value Date Recorded Sex Assigned at Not on file Legal Sex Female 3:34 AM SLOT OPERATIONS MANAGER Gender Identity Not on file Sexual Orientation Not on file documented as of this encounter Plan of Treatment Not on file documented as of this encounter Visit Diagnoses Diagnosis Gynecologic examination- Primary Gynecological examination Screening for malignant neoplasm of the rectum documented in this encounter Care Teams Behavioral Health Clinician Relationship Specialty Start Date End Date Govind Moura Sr., FNP [address] [place] [address] PCP - General NURSE PRACTITIONER 05/11/16 documented as of this encounter
--- OUTSIDE RECORDS SUMMARY | 2025-04-15 10:46 | XMS_ITS | Encounter Summary ---
Author Organization [facility] Address [address] [place] [address] Care Team Providers Care Laundry Housekeeping Aide Name Role Phone HAYLEE Moura Sr., Govind Tejeda Primary Care Pro vider Encounter Details Date Type Department Care Team (Latest Contact Info) Description 12/29/1999 Outpatient Historical [facility] [place] [address] [place] [address] Dawson Fajardo MD NO ADDRESS ON FILE Female stress incontinence (Primary Dx); Uterovaginal prolapse, unspecified; Other specified pre-operative examination Social History Tobacco Use Types Packs/Day Years Used Date Smoking Tobacco: Never Assessed Comments Unknown Sex and Gender Information Value Date Recorded Sex Assigned at Not on file Legal Sex Female 3:34 AM 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
--- OUTSIDE RECORDS SUMMARY | 2025-04-15 10:46 | XMS_ITS | Encounter Summary ---
Author Organization [facility] Address [address] [place] [address] Care Team Providers Care Interstate Bus Driver Name Role Phone HAYLEE Moura Sr., Michael Dave Primary Care Pro vider Encounter Details Date Type Department Care Team (Latest Contact Info) Description 01/17/2000 Outpatient Historical [facility] [place] [address] [place] [address] Dawson Fajardo MD NO ADDRESS ON FILE Follow-up examination following surgery (Primary Dx) Social History Tobacco Use Types Packs/Day Years Used Date Smoking Tobacco: Never Assessed Comments Unknown Sex and Gender Information Value Date Recorded Sex Assigned at Not on file Legal Sex Female 3:34 AM SAGGER FILLER Gender Identity Not on file Sexual Orientation Not on file documented as of this encounter Plan of Treatment Not on file documented as of this encounter Visit Diagnoses Diagnosis Follow-up examination following surgery- Primary documented in this encounter Care Teams Interstate Bus Driver Relationship Specialty Start Date End Date Govind Moura Sr., FNP [address] [place] [address] PCP - General NURSE PRACTITIONER 05/11/16 documented as of this encounter
--- OUTSIDE RECORDS SUMMARY | 2025-04-15 10:46 | XMS_ITS | Encounter Summary ---
Author Organization [facility] Address [address] [place] [address] Care Team Providers Care Can Stacker Name Role Phone HAYLEE Moura Sr., Govind Tejeda Primary Care Pro vider Encounter Details Date Type Department Care Team (Latest Contact Info) Description 02/01/2005 Outpatient Historical [facility] PRIVATE EQUITY ANALYST [address] [place] [address] Dawson Fajardo MD NO ADDRESS ON FILE VAGINAL WALL PROLAPSE NOS (Primary Dx); ENURESIS NOS Social History Tobacco Use Types Packs/Day Years Used Date Smoking Tobacco: Never Assessed Comments Unknown Sex and Gender Information Value Date Recorded Sex Assigned at Not on file Legal Sex Female 3:34 AM SHIP'S SURVEYOR Gender Identity Not on file Sexual Orientation Not on file documented as of this encounter Plan of Treatment Not on file documented as of this encounter Visit Diagnoses Diagnosis Unspecified prolapse of vaginal solomon- Primary Unspecified urinary incontinence documented in this encounter Care Teams Can Stacker Relationship Specialty Start Date End Date Govind Moura Sr., FNP [address] [place] [address] PCP - General NURSE PRACTITIONER 05/11/16 documented as of this encounter
--- OUTSIDE RECORDS SUMMARY | 2025-04-15 10:46 | XMS_ITS | Encounter Summary ---
Author Organization [facility] Address [address] [place] [address] Care Team Providers Care Materials Tech Name Role Phone HAYLEE Moura Sr., Michael Dave Primary Care Pro vider Encounter Details Date Type Department Care Team (Late st Contact Info) Description 02/07/2000 Outpatient Historical [facility] Dawson Fajardo MD NO ADDRESS ON FILE Urinary tract infection, site not specified (Primary Dx) Social History Tobacco Use Types Packs/Day Years Used Date Smoking Tobacco: Never Assessed Comments Unknown Sex and Gender Information Value Date Recorded Sex Assigned at Not on file Legal Sex Female 3:34 AM TRANSMISSION TECHNICIAN Gender Identity Not on file Sexual Orientation Not on file documented as of this encounter Plan of Treatment Not on file documented as of this encounter Visit Diagnoses Diagnosis Urinary tract infection, site not specified- Primary documented in this encounter Care Teams Materials Tech Relationship Specialty Start Date End Date Govind Moura Sr., FNP [address] [place] [address] PCP - General NURSE PRACTITIONER 05/11/16 documented as of this encounter
--- OUTSIDE RECORDS SUMMARY | 2025-04-15 10:46 | XMS_ITS | Encounter Summary ---
Author Organization [facility] Address [address] [place] [address] Care Team Providers Care Industrial Court Magistrate Name Role Phone HAYLEE Moura Sr., Michael Dave Primary Care Pro vider Encounter Details Date Type Department Care Team (Latest Contact Info) Description 03/27/[address] [facility] Terrance Villalba [place] [address] [place] [address] Brendan West MD NO ADDRESS ON FILE SCREENING MAMM-MAILG NEOPL-OTHER (Primary Dx) Social History Tobacco Use Types Packs/Day Years Used Date Smoking Tobacco: Never Assessed Comments Unknown Sex and Gender Information Value Date Recorded Sex Assigned at Not on file Legal Sex Female 3:34 AM TITLE MANAGER Gender Identity Not on file Sexual Orientation Not on file documented as of this encounter Plan of Treatment Not on file documented as of this encounter Visit Diagnoses Diagnosis Other screening mammogram- Primary documented in this encounter Care Teams Industrial Court Magistrate Relationship Specialty Start Date End Date Govind Moura Sr., FNP [address] [place] [address] PCP - General NURSE PRACTITIONER 05/11/16 documented as of this encounter
--- OUTSIDE RECORDS SUMMARY | 2025-04-15 10:46 | XMS_ITS | Encounter Summary ---
Author Organization [facility] Address [address] [place] [address] Care Team Providers Care Catalogue Compiler Name Role Phone HAYLEE Moura Sr., Govind Tejeda Primary Care Pro vider Encounter Details Date Type Department Care Team (Latest Contact Info) Description 07/24/2005 Outpatient [facility] DEXA Scan [facility] [place] [address] [place] [address] Brendan West MD NO ADDRESS ON FILE BONE & CARTILAGE DIS NOS (Primary Dx); OVARIAN FAILURE NEC Social History Tobacco Use Types Packs/Day Years Used Date Smoking Tobacco: Never Assessed Comments Unknown Sex and Gender Information Value Date Recorded Sex Assigned at Not on file Legal Sex Female 3:34 AM AUDITING CODER Gender Identity Not on file Sexual Orientation Not on file documented as of this encounter Plan of Treatment Not on file documented as of this encounter Visit Diagnoses Diagnosis Disorder of bone and cartilage, unspecified- Primary Other ovarian failure(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
--- OUTSIDE RECORDS SUMMARY | 2025-04-15 10:46 | XMS_ITS | Encounter Summary ---
Author Organization [facility] Address [address] [place] [address] Care Team Providers Care School Health Assistant Name Role Phone HAYLEE Moura Sr., Michael Dave Primary Care Pro vider Encounter Details Date Type Department Care Team (Latest Contact Info) Description 12/27/2003 Outpatient [facility] [place] [address] Boo Reyes MD NO ADDRESS ON FILE SCREENING MAL NEOP-COLON (Primary Dx) Social History Tobacco Use Types Packs/Day Years Used Date Smoking Tobacco: Never Assessed Comments Unknown Sex and Gender Information Value Date Recorded Sex Assigned at Not on file 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
--- OUTSIDE RECORDS SUMMARY | 2025-04-15 10:46 | XMS_ITS | Encounter Summary ---
Author Organization [facility] Address [address] [place] [address] Care Team Providers Care Program Management Intern Name Role Phone HAYLEE Moura Sr., Michael Dave Primary Care Pro vider Encounter Details Date Type Department Care Team (Late st Contact Info) Description 08/09/2005 Outpatient [facility] [address] [place] [address] [place] Hawkins MD NO ADDRESS ON FILE CYSTOCELE, MIDLINE (Primary Dx) Social History Tobacco Use Types Packs/Day Years Used Date Smoking Tobacco: Never Assessed Comments Unknown Sex and Gender Information Value Date Recorded Sex Assigned at Not on file Legal Sex Female 3:34 AM COMMUNITY INTEGRATION SPECIALIST Gender Identity Not on file Sexual Orientation Not on file documented as of this encounter Plan of Treatment Not on file documented as of this encounter Visit Diagnoses Diagnosis Cystocele, midline- Primary documented in this encounter Care Teams Program Management Intern Relationship Specialty Start Date End Date Govind Moura Sr., FNP [address] [place] [address] PCP - General NURSE PRACTITIONER 05/11/16 documented as of this encounter
--- OUTSIDE RECORDS SUMMARY | 2025-04-15 10:46 | XMS_ITS | Encounter Summary ---
Author Organization [facility] Address [address] [place] [address] Care Team Providers Care Curing Press Maintainer Name Role Phone HAYLEE Moura Sr., Michael Dave Primary Care Pro vider Encounter Details Date Type Department Care Team (Late st Contact Info) Description 04/12/2005 Outpatient Historical [facility] [address] [place] [address] Kathleen Andre MD NO ADDRESS ON FILE SCREENING MAMM-MAILG NEOPL NEC (Primary Dx) Social History Tobacco Use Types Packs/Day Years Used Date Smoking Tobacco: Never Assessed Comments Unknown Sex and Gender Information Value Date Recorded Sex Assigned at Not on file Legal Sex Female 3:34 AM CLINICAL DATA MANAGER Gender Identity Not on file Sexual Orientation Not on file documented as of this encounter Plan of Treatment Not on file documented as of this encounter Visit Diagnoses Diagnosis Other screening mammogram- Primary documented in this encounter Care Teams Curing Press Maintainer Relationship Specialty Start Date End Date Govind Moura Sr., FNP [address] [place] [address] PCP - General NURSE PRACTITIONER 05/11/16 documented as of this encounter
--- OUTSIDE RECORDS SUMMARY | 2025-04-15 10:46 | XMS_ITS | Encounter Summary ---
Author Organization [facility] Address [address] [place] [address] Care Team Providers Care Full Service Vending Driver Name Role Phone HAYLEE Moura Sr., Govind Tejeda Primary Care Pro vider Encounter Details Date Type Department Care Team (Latest Contact Info) Description 08/28/2001 Outpatient [facility] [address] [place] [address] Brendan West MD NO ADDRESS ON FILE PAINFUL RESPIRATION (Primary Dx); CHEST PAIN NOS; REFLUX ESOPHAGITIS; NEUROTIC DEPRESSION Social History Tobacco Use Types Packs/Day Years Used Date Smoking Tobacco: Never Assessed Comments Unknown Sex and Gender Information Value Date Recorded Sex Assigned at Not on file Legal Sex Female 3:34 AM COOKER SULFATE Gender Identity Not on file Sexual Orientation Not on file documented as of this encounter Plan of Treatment Not on file documented as of this encounter Visit Diagnoses Diagnosis Painful respiration- Primary Chest pain, unspecified Reflux esophagitis Dysthymic disorder documented in this encounter Care Teams Full Service Vending Driver Relationship Specialty Start Date End Date Govind Moura Sr., FNP [address] [place] [address] PCP - General NURSE PRACTITIONER 05/11/16 documented as of this encounter
--- OUTSIDE RECORDS SUMMARY | 2025-04-15 10:46 | XMS_ITS | Encounter Summary ---
Author Organization [facility] Address [address] [place] [address] Care Team Providers Care Aerospace Physiological Technician Name Role Phone HAYLEE Moura Sr., Michael Dave Primary Care Pro vider Encounter Details Date Type Department Care Team (Latest Contact Info) Description 06/02/2018 Ancillary Orders [facility] Pre-Registration [place] CALL TO MAKE APPOINTMENT ONLY [address] [place] [address] Dawson Fajardo MD NO ADDRESS ON FILE Visit for screening mammogram Social History Tobacco Use Types Packs/Day Years Used Date Smoking Tobacco: Former Smokeless Tobacco: Never Alcohol Use Standard Drinks/Week Comments Yes 5.8 (1 standard drink = 0.6 oz p ure alcohol) Comments No Sex and Gender Information Value Date Recorded Sex Assigned at Not on file Legal Sex Female 3:34 AM ELECTRIC MOTOR FITTER Gender Identity Not on file Sexual Orientation Not on file Occupation Industry Job Start Date Job End Date Not on file Not on file Not on file Not on file Not on file Not on file Not on file Not on file documented as of this encounter Plan of Treatment Not on file documented as of this encounter Visit Diagnoses Diagnosis Visit for screening mammogram Other screening mammogram documented in this encounter Care Teams Aerospace Physiological Technician Relationship Specialty Start Date End Date Govind Moura Sr., FNP [address] [place] [address] PCP - General NURSE PRACTITIONER 05/11/16 documented as of this encounter
--- OUTSIDE RECORDS SUMMARY | 2025-04-15 10:46 | XMS_ITS | Encounter Summary ---
Author Organization [facility] Address [address] [place] [address] Care Team Providers Care Senior Python Developer Name Role Phone HAYLEE Moura Sr., Govind Tejeda Primary Care Pro vider Encounter Details Date Type Department Care Team (Latest Contact Info) Description 11/03/1999 Outpatient Historical [facility] [address] [place] [address] Dawson Fajardo MD NO ADDRESS ON FILE Uterovaginal prolapse, unspecified (Primary Dx) Social History Tobacco Use Types Packs/Day Years Used Date Smoking Tobacco: Never Assessed Comments Unknown Sex and Gender Information Value Date Recorded Sex Assigned at Not on file Legal Sex Female 3:34 AM TIN CUTTER Gender Identity Not on file Sexual Orientation Not on file documented as of this encounter Plan of Treatment Not on file documented as of this encounter Visit Diagnoses Diagnosis Uterovaginal prolapse, unspecified- Primary documented in this encounter Care Teams Senior Python Developer Relationship Specialty Start Date End Date Govind Moura Sr., FNP [address] [place] [address] PCP - General NURSE PRACTITIONER 05/11/16 documented as of this encounter
--- OUTSIDE RECORDS SUMMARY | 2025-04-15 10:46 | XMS_ITS | Encounter Summary ---
Author Organization [facility] Address [address] [place] [address] Care Team Providers Care Training Assistant Name Role Phone HAYLEE Moura Sr., Michael Dave Primary Care Pro vider Reason for Referral * Outpatient Services (Routine) - Closed Specialty Diagnoses / Procedures Referred By Contac t Referred To Contact Radiology Diagnoses Visit for screening mammogram Procedures MAMMO DIGITAL SCREEN BILAT Dawson Fajardo MD [facility] [address] [address] Phone: tel: fax: Referral ID Status Reason Start Date Expiration Date Visits Re quested Visits Authorized [id number] Closed 05/11/2016 06/11/2017 1 1 Encounter Details Date Type Department Care Team (Latest Contact Info) Description 05/11/2016 Ancillary Orders [facility] Pre-Registration [place] CALL TO MAKE APPOINTMENT ONLY [address] [place] [address] Dawson Fajardo MD NO ADDRESS ON FILE Visit for screening mammogram (Primary Dx) Social History Tobacco Use Types Packs/Day Years Used Date Smoking Tobacco: Former Smokeless Tobacco: Never Alcohol Use Standard Drinks/Week Comments Yes 5.8 (1 standard drink = 0.6 oz p ure alcohol) Comments No Sex and Gender Information Value Date Recorded Sex Assigned at Not on file Legal Sex Female 3:34 AM COMPOUND FINISHER Gender Identity Not on file Sexual Orientation [...] encounter Results * MAMMO DIGITAL SCREEN BILAT (06/11/2016 2:45 PM COMPOUND FINISHER) Anatomical Region Laterality Modality Breast Bilateral Mammography Narrative 06/12/2016 12:48 PM COMPOUND FINISHER Bilateral Mammogram Reason for Exam: Screening Comparison: Compared to: 06/06/2015 MAMMO DIGITAL SCREEN BILAT, 05/17/2014 MAMMO DIGITAL SCREEN BILAT, 05/13/2013 MAMMO DIGITAL SCREEN BILAT, 04/29/2012 MAMMO DIGITAL SCREEN BILAT, 04/25/2011 MAMMO DIGITAL SCREEN BILAT, 04/24/2010 MAMMO SCREENING BILAT, and 04/21/2009 MAMMO SCREENING BILAT Findings: Bilateral CC and MLO views were obtained. This examination was reviewed with the aid of a computer-aided detection system(CAD). The breast tissue density is average. No significant new findings since the prior mammogram(s). us Dawson Fajardo MD MAMMO ORDERABLES Final Result documented in this encounter Visit Diagnoses Diagnosis Visit for screening mammogram- Primary Other screening mammogram Visit for screening mammogram Other screening mammogram documented in this encounter Care Teams Training Assistant Relationship Specialty Start Date End Date Govind Moura Sr., FNP [address] [place] [address] PCP - General NURSE PRACTITIONER 05/11/16 documented as of this encounter
--- OUTSIDE RECORDS SUMMARY | 2025-04-15 10:46 | XMS_ITS | Encounter Summary ---
Author Organization [facility] Address [address] Attn: [place] [address] Care Team Providers Care Washing Machine Loader And Puller Name Role Phone HAYLEE Moura Sr., Govind Tejeda Primary Care Pro vider Encounter Details Date Type Department Care Team (Late st Contact Info) Description 01/03/2000 Inpatient Historical Dawson Fajardo MD NO ADDRESS ON FILE Social History Tobacco Use Types Packs/Day Years Used Date Smoking Tobacco: Never Assessed Comments Unknown Sex and Gender Information Value Date Recorded Sex Assigned at Not on file Legal Sex Female 3:34 AM OPTICAL GOODS WORKER Gender Identity Not on file Sexual Orientation Not on file documented as of this encounter Plan of Treatment Not on file documented as of this encounter Visit Diagnoses Not on filedocumented in this encounter Care Teams Washing Machine Loader And Puller Relationship Specialty Start Date End Date Govind Moura Sr., FNP [address] [place] [address] PCP - General NURSE PRACTITIONER 05/11/16 documented as of this encounter
--- OUTSIDE RECORDS SUMMARY | 2025-04-15 10:46 | XMS_ITS | Encounter Summary ---
Author Organization [facility] Address [address] [place] [address] Care Team Providers Care Institution Director Name Role Phone HAYLEE Moura Sr., Govind Tejeda Primary Care Pro vider Encounter Details Date Type Department Care Team (Latest Contact Info) Description 07/24/[address] [facility] [address] [place] [address] Brendan West MD NO ADDRESS ON FILE ACUTE SINUSITIS NOS (Primary Dx); FEMALE STRESS INCONTINENCE Social History Tobacco Use Types Packs/Day Years Used Date Smoking Tobacco: Never Assessed Comments Unknown Sex and Gender Information Value Date Recorded Sex Assigned at Not on file Legal Sex Female 3:34 AM GENERAL ADJUSTER Gender Identity Not on file Sexual Orientation Not on file documented as of this encounter Plan of Treatment Not on file documented as of this encounter Visit Diagnoses Diagnosis Acute sinusitis, unspecified- Primary Female stress incontinence documented in this encounter Care Teams Institution Director Relationship Specialty Start Date End Date Govind Moura Sr., FNP [address] [place] [address] PCP - General NURSE PRACTITIONER 05/11/16 documented as of this encounter
--- OUTSIDE RECORDS SUMMARY | 2025-04-15 10:46 | XMS_ITS | Clinical Summary ---
Author Organization [facility] Address [facility] [place] [address] Care Team Providers Care Athletic Director Name Role Phone Martell Tadeo, HAYLEE, Govind Tejeda Primary Care Pro vider Allergies Active Allergy Reactions Criticality Noted Date Comments Atorvastatin Muscle Pain Low 12/02/2007 Rofecoxib Rash Low 12/02/2007 Sulfa (Sulfonamide Antibiotics) Unknown 11/13 Medications levothyroxine (SYNTHROID) 75 mcg Oral Tab Take 1 Tab by mouth daily. 30 Tab 11 09/06/2008 Active omeprazole (PRILOSEC) 20 mg Oral CpDR Take 1 Cap by mouth daily. 30 Cap 0 03/01/2009 Active vitamin B complex-vitamin C-folic acid (NEPHROCAP) 1 mg Capsule Take 1 Cap by mouth daily. Active coenzyme Q10 Capsule Take 10 mg by mouth daily. Active calcium-magnesiu m-Zinc 333-133-5 mg Tablet Take by mouth daily at bedtime. Active naproxen sodium (ALEVE) 220 mg Tablet Take 220 mg by mouth every 4 hours as needed for Pain, Moderate. Active ibuprofen (MOTRIN) 200 mg tablet Take 200 mg by mouth every 6 hours as needed for Pain, Mild. 1-4 tabs prn Active HYDROcodone-acet aminophen (NORCO) 7.5-325 mg Tablet Take 1 Tab by mouth every 4 hours as needed for Pain, Moderate. 45 Tab 0 02/05/2014 Active Active Problems Problem Noted Date Diagnosed Date [...] Name Comments Breast Cancer Other 1 M Cousins age: 40's Breast Cancer Other 2 M Aunt age 60's risk assessment to genetic counselor -see media tab Ovarian Cancer Neg Hx Relation Name Status Comments Other 1 M Cousins Other 2 M Aunt Social History Tobacco Use Types Packs/Day Years Used Date Smoking Tobacco: Former Smokeless Tobacco: Never Alcohol Use Standard Drinks/Week Comments Yes 5.8 (1 standard drink = 0.6 oz p ure alcohol) Comments No Sex and Gender Information Value Date Recorded Sex Assigned at Not on file Legal Sex Female 3:34 AM INFORMATICA DEVELOPER Gender Identity Not on file Sexual Orientation Not on file Occupation Industry Job Start Date Job End Date Not on file Not on file Not on file Not on file Not on file Not on file Not on file Not on file Last Filed Vital Signs Vital Sign Reading Time Taken Comments Blood Pressure 159/73 02/05/2014 12:50 PM CDT Pulse 79 02/05/2014 12:50 PM CDT Temperature 36.2 C (97.2 F) 02/05/2014 12:50 PM CDT Respiratory Rate 20 02/05/2014 12:50 PM CDT Oxygen Saturation 94% 02/05/2014 12:50 PM CDT Inhaled Oxygen Concentration - - Weight 57.2 kg (126 lb 1.7 oz) 02/05/2014 7:42 A M CDT Height 154.9 cm (5' 1 ) 02/05/2014 7:42 AM CDT Body Mass Index 23.83 02/05/2014 7:42 AM CDT Plan of Treatment Health Maintenance Due Date Last Done Comments ZOSTER VACCINE (1 of 2) 1988 DTAP/TDAP/TD VACCINES (1 - Tdap) 03/27/2003 03/26/20 03 PNEUMOCOCCAL VACCINE 50+ YEARS (2 of 2 - PCV) 03/26/20 04 03/26/2003 OSTEOPOROSIS SCREENING 08/13/2012 08/13/2007 RSV VACCINE (60+ or ) (1 - 1-dose 75+ series) 2013 INFLUENZA VACCINE (#1) 2025 Procedures Procedure Name Priority Date/Time Associated Diagnosis Comments XR DEXA BONE DENSITY AXIAL 1 OR MORE SITES Routine 08/13/2007 9:50 AM INFORMATICA DEVELOPER from Last 3 Months or Most Recently Relevant to Health Maintenance Results * XR DEXA BONE DENSITY AXIAL (08/13/2007 9:50 AM INFORMATICA DEVELOPER) Anatomical Region Laterality Modality Other 08/13/2007 9:50 AM INFORMATICA DEVELOPER Narrative 08/13/2007 10:24 AM INFORMATICA DEVELOPER 08/13/2007 Reason for Consultation: Osteopenia. For determination [...] control. jaw Procedure Note Tristan Downey - 10/17/2007 08/13/2007 Reason for Consultation: Osteopenia. For determination [...] or Most Recently Relevant to Health Maintenance Insurance DUAL COMPLETE [facility] PPO D-SNP Advance Directives For more information, please contact: [phone] * Full Code (Latest Code Status on File) Date Activated Date Inactivated Comments 08/03/2011 1:57 PM 08/04/2011 3:19 PM Care Teams Athletic Director Relationship Specialty Start Date End Date Govind Moura Sr., FNP [address] [place] [address] PCP - General NURSE PRACTITIONER 05/11/16
--- OUTSIDE RECORDS SUMMARY | 2025-04-15 10:46 | XMS_ITS | Encounter Summary ---
Author Organization [facility] Address [address] [place] [address] Care Team Providers Care Side Panel Padder Name Role Phone HAYLEE Moura Sr., Michael Dave Primary Care Pro vider Encounter Details Date Type Department Care Team (Latest Contact Info) Description 03/23/1998 Outpatient Historical [facility] [address] [place] [address] Dawson Fajardo MD NO ADDRESS ON FILE Gynecologic examination (Primary Dx) Social History Tobacco Use Types Packs/Day Years Used Date Smoking Tobacco: Never Assessed Comments Unknown Sex and Gender Information Value Date Recorded Sex Assigned at Not on file Legal Sex Female 3:34 AM STRATEGIC COMMUNICATIONS SPECIALIST Gender Identity Not on file Sexual Orientation Not on file documented as of this encounter Plan of Treatment Not on file documented as of this encounter Visit Diagnoses Diagnosis Gynecologic examination- Primary Gynecological examination documented in this encounter Care Teams Side Panel Padder Relationship Specialty Start Date End Date Govind Moura Sr., FNP [address] [place] [address] PCP - General NURSE PRACTITIONER 05/11/16 documented as of this encounter
--- OUTSIDE RECORDS SUMMARY | 2025-04-15 10:46 | XMS_ITS | Encounter Summary ---
Author Organization [facility] Address [address] [place] [address] Care Team Providers Care Tour Coordinator Name Role Phone HAYLEE Moura Sr., Michael Dave Primary Care Pro vider Encounter Details Date Type Department Care Team (Latest Contact Info) Description 02/14/2004 Outpatient [facility] [address] [place] [address] Brendan West MD NO ADDRESS ON FILE ACUTE SINUSITIS NOS (Primary Dx); CHEST PAIN NOS; REFLUX ESOPHAGITIS; HYPOTHYROIDISM NOS Social History Tobacco Use Types Packs/Day Years Used Date Smoking Tobacco: Never Assessed Comments Unknown Sex and Gender Information Value Date Recorded Sex Assigned at Not on file Legal Sex Female 3:34 AM COVER MAKER Gender Identity Not on file Sexual Orientation Not on file documented as of this encounter Plan of Treatment Not on file documented as of this encounter Visit Diagnoses Diagnosis Acute sinusitis, unspecified- Primary Chest pain, unspecified Reflux esophagitis Unspecified hypothyroidism documented in this encounter Care Teams Tour Coordinator Relationship Specialty Start Date End Date Govind Moura Sr., FNP [address] [place] [address] PCP - General NURSE PRACTITIONER 05/11/16 documented as of this encounter
--- OUTSIDE RECORDS SUMMARY | 2025-04-15 10:46 | XMS_ITS | Encounter Summary ---
Author Organization [facility] Address [address] [place] [address] Care Team Providers Care Geophysical Prospecting Surveyor Name Role Phone HAYLEE Moura Sr., Michael Dave Primary Care Pro vider Encounter Details Date Type Department Care Team (Late st Contact Info) Description 01/17/2000 Outpatient Historical [facility] Urology- [address]tr[address], 3[address] [place] [address] Terry Boucher MD [address] [address] Retention of urine, unspecified (Primary Dx) Social History Tobacco Use Types Packs/Day Years Used Date Smoking Tobacco: Never Assessed Comments Unknown Sex and Gender Information Value Date Recorded Sex Assigned at Not on file Legal Sex Female 3:34 AM LABOR EMPLOYMENT ASSOCIATE Gender Identity Not on file Sexual Orientation Not on file documented as of this encounter Plan of Treatment Not on file documented as of this encounter Visit Diagnoses Diagnosis Retention of urine, unspecified- Primary documented in this encounter Care Teams Geophysical Prospecting Surveyor Relationship Specialty Start Date End Date Govind Moura Sr., FNP [address] [place] [address] PCP - General NURSE PRACTITIONER 05/11/16 documented as of this encounter
--- OUTSIDE RECORDS SUMMARY | 2025-04-15 10:46 | XMS_ITS | Encounter Summary ---
Author Organization [facility] Address [address] [place] [address] Care Team Providers Care Wood Heel Finisher Name Role Phone HAYLEE Moura Sr., Michael Dave Primary Care Pro vider Encounter Details Date Type Department Care Team (Latest Contact Info) Description 02/21/2004 Outpatient Historical [facility] [place] [address] [place] [address] Brendan West MD NO ADDRESS ON FILE CHEST PAIN NEC (Primary Dx); ABNORM ELECTROCARDIOGRAM; FAMILY HX-ISCHEM HEART DIS Social History Tobacco Use Types Packs/Day Years Used Date Smoking Tobacco: Never Assessed Comments Unknown Sex and Gender Information Value Date Recorded Sex Assigned at Not on file Legal Sex Female 3:[address]AN TECH Gender Identity Not on file Sexual Orientation Not on file documented as of this encounter Plan of Treatment Not on file documented as of this encounter Visit Diagnoses Diagnosis Other chest pain- Primary Nonspecific abnormal electrocardiogram (ECG) (EKG) Family history of ischemic heart disease documented in this encounter Care Teams Wood Heel Finisher Relationship Specialty Start Date End Date Govind Moura Sr., FNP [address] [place] [address] PCP - General NURSE PRACTITIONER 05/11/16 documented as of this encounter
--- OUTSIDE RECORDS SUMMARY | 2025-04-15 10:46 | XMS_ITS | Encounter Summary ---
Author Organization [facility] Address [address] [place] [address] Care Team Providers Care Foreign Banknote Teller Trader Name Role Phone HAYLEE Moura Sr., Govind Tejeda Primary Care Pro vider Encounter Details Date Type Department Care Team (Latest Contact Info) Description 02/21/2004 Outpatient Historical [facility] [address] [place] [address] Cesar Banegas MD [address] [place] [address] PRECORDIAL PAIN (Primary Dx) Social History Tobacco Use Types Packs/Day Years Used Date Smoking Tobacco: Never Assessed Comments Unknown Sex and Gender Information Value Date Recorded Sex Assigned at Not on file Legal Sex Female 3:34 AM INTERACTIVE DEVELOPER Gender Identity Not on file Sexual Orientation Not on file documented as of this encounter Plan of Treatment Not on file documented as of this encounter Visit Diagnoses Diagnosis Precordial pain- Primary documented in this encounter Care Teams Foreign Banknote Teller Trader Relationship Specialty Start Date End Date Govind Moura Sr., FNP [address] [place] [address] PCP - General NURSE PRACTITIONER 05/11/16 documented as of this encounter
--- OUTSIDE RECORDS SUMMARY | 2025-04-15 10:46 | XMS_ITS | Encounter Summary ---
Author Organization [facility] Address [address] [place] [address] Care Team Providers Care Egg Processing Supervisor Name Role Phone HAYLEE Moura Sr., Govind Tejeda Primary Care Pro vider Encounter Details Date Type Department Care Team (Latest Contact Info) Description 10/14/[address] [facility] [place] [address] [place] [address] Dawson Fajardo MD NO ADDRESS ON FILE Prolapse of vaginal solomon without mention of uterine prolapse (Primary Dx) Social History Tobacco Use Types Packs/Day Years Used Date Smoking Tobacco: Never Assessed Comments Unknown Sex and Gender Information Value Date Recorded Sex Assigned at Not on file Legal Sex Female 3:34 AM SEO MANAGER Gender Identity Not on file Sexual Orientation Not on file documented as of this encounter Plan of Treatment Not on file documented as of this encounter Visit Diagnoses Diagnosis Prolapse of vaginal solomon without mention of uterine prolapse- Primary documented in this encounter Care Teams Egg Processing Supervisor Relationship Specialty Start Date End Date Govind Moura Sr., FNP [address] [place] [address] PCP - General NURSE PRACTITIONER 05/11/16 documented as of this encounter
--- OUTSIDE RECORDS SUMMARY | 2025-04-15 10:46 | XMS_ITS | Encounter Summary ---
Author Organization [facility] Address [address] [place] [address] Care Team Providers Care Agricultural Service Technician Name Role Phone HAYLEE Moura Sr., Michael Dave Primary Care Pro vider Encounter Details Date Type Department Care Team (Latest Contact Info) Description 03/27/2004 Outpatient Historical [facility] Terrance Villalba [place] [address] [place] [address] Mary Dias MD NO ADDRESS ON FILE SCREENING MAMM-MAILG NEOPL-OTHER (Primary Dx) Social History Tobacco Use Types Packs/Day Years Used Date Smoking Tobacco: Never Assessed Comments Unknown Sex and Gender Information Value Date Recorded Sex Assigned at Not on file Legal Sex Female 3:34 AM PRODUCTION LINE OPERATOR Gender Identity Not on file Sexual Orientation Not on file documented as of this encounter Plan of Treatment Not on file documented as of this encounter Visit Diagnoses Diagnosis Other screening mammogram- Primary documented in this encounter Care Teams Agricultural Service Technician Relationship Specialty Start Date End Date Govind Moura Sr., FNP [address] [place] [address] PCP - General NURSE PRACTITIONER 05/11/16 documented as of this encounter
--- OUTSIDE RECORDS SUMMARY | 2025-04-15 10:46 | XMS_ITS | Encounter Summary ---
Author Organization [facility] Address [address] [place] [address] Care Team Providers Care Arch Support Maker Name Role Phone HAYLEE Moura Sr., Govind Tejeda Primary Care Pro vider Encounter Details Date Type Department Care Team (Latest Contact Info) Description 02/01/2005 Outpatient [facility] [address] [place] [address] Brendan West MD NO ADDRESS ON FILE HYPERLIPIDEMIA NEC/NOS (Primary Dx); HYPOTHYROIDISM NOS; Rhinitis due to pollen; HYPERTENSION NOS Social History Tobacco Use Types Packs/Day Years Used Date Smoking Tobacco: Never Assessed Comments Unknown Sex and Gender Information Value Date Recorded Sex Assigned at Not on file Legal Sex Female 3:34 AM REVIEW RN Gender Identity Not on file Sexual Orientation Not on file documented as of this encounter Plan of Treatment Not on file documented as of this encounter Visit Diagnoses Diagnosis Other and unspecified hyperlipidemia- Primary Unspecified hypothyroidism Rhinitis due to pollen 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
--- OUTSIDE RECORDS SUMMARY | 2025-04-15 10:47 | XMS_ITS | Encounter Summary ---
Author Organization [facility] Address [address] [place] [address] Care Team Providers Care Corporate Ethics Officer Name Role Phone HAYLEE Moura Sr., Govind Tejeda Primary Care Pro vider Encounter Details Date Type Department Care Team (Late st Contact Info) Description 09/12/2007 Outpatient Historical [facility] [address] [place] [address] Lucas Wilkinson FNP [address] [place] [address] Social History Tobacco Use Types Packs/Day Years Used Date Smoking Tobacco: Never Assessed Comments Unknown Sex and Gender Information Value Date Recorded Sex Assigned at Not on file Legal Sex Female 3:34 AM BRIAR WOOD SORTER Gender Identity Not on file Sexual Orientation Not on file documented as of this encounter Plan of Treatment Not on file documented as of this encounter Visit Diagnoses Not on filedocumented in this encounter Care Teams Corporate Ethics Officer Relationship Specialty Start Date End Date Govind Moura Sr., FNP [address] [place], [place] [address] PCP - General NURSE PRACTITIONER 05/11/16 documented as of this encounter
--- OUTSIDE RECORDS SUMMARY | 2025-04-15 10:47 | XMS_ITS | Encounter Summary ---
Author Organization [facility] Address [address] [place] [address] Care Team Providers Care Counter Former Name Role Phone HAYLEE Moura Sr., Michael Dave Primary Care Pro vider Encounter Details Date Type Department Care Team (Latest Contact Info) Description 04/14/2007 Outpatient Historical [facility] Terrance Villalba [place] [address] [place] [address] Brendan West MD NO ADDRESS ON FILE Other Screening Mammogram (Primary Dx) Social History Tobacco Use Types Packs/Day Years Used Date Smoking Tobacco: Never Assessed Comments Unknown Sex and Gender Information Value Date Recorded Sex Assigned at Not on file 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
--- OUTSIDE RECORDS SUMMARY | 2025-04-15 10:47 | XMS_ITS | Encounter Summary ---
Author Organization [facility] Address [address] [place] [address] Care Team Providers Care Private Sector Executive Name Role Phone HAYLEE Moura Sr., Michael Dave Primary Care Pro vider Encounter Details Date Type Department Care Team (Latest Contact Info) Description 03/25/2003 Outpatient Historical [facility] Terrance Villalba [place] [address] [place] [address] Brendan West MD NO ADDRESS ON FILE SCREENING MAMM-MAILG NEOPL-OTHER (Primary Dx) Social History Tobacco Use Types Packs/Day Years Used Date Smoking Tobacco: Never Assessed Comments Unknown Sex and Gender Information Value Date Recorded Sex Assigned at Not on file 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
--- OUTSIDE RECORDS SUMMARY | 2025-04-15 10:47 | XMS_ITS | Encounter Summary ---
Author Organization [facility] Address [address] [place] [address] Care Team Providers Care Clinical Exercise Physiologist Name Role Phone HAYLEE Moura Sr., Michael Dave Primary Care Pro vider Encounter Details Date Type Department Care Team (Latest Contact Info) Description 09/02/2001 Outpatient [facility] [address] [place] [address] Brendan West MD NO ADDRESS ON FILE ABDOMINAL PAIN RUQ (Primary Dx) Social History Tobacco Use Types Packs/Day Years Used Date Smoking Tobacco: Never Assessed Comments Unknown Sex and Gender Information Value Date Recorded Sex Assigned at Not on file 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
--- OUTSIDE RECORDS SUMMARY | 2025-04-15 10:47 | XMS_ITS | Encounter Summary ---
Author Organization [facility] Address [address] [place] [address] Care Team Providers Care Lighthouse Keeper Name Role Phone HAYLEE Moura Sr., Michael Dave Primary Care Pro vider Encounter Details Date Type Department Care Team (Late st Contact Info) Description 08/23/2005 Outpatient Historical [facility] [address] 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
--- OUTSIDE RECORDS SUMMARY | 2025-04-15 10:47 | XMS_ITS | Encounter Summary ---
Author Organization [facility] Address [address] [place] [address] Care Team Providers Care Roof [place]en[place] Tile Setter Name Role Phone HAYLEE Moura Sr., Michael Dave Primary Care Pro vider Encounter Details Date Type Department Care Team (Late st Contact Info) Description 03/20/2002 Outpatient Historical [facility] Deejay [place] [address] [place] [address] Kathleen Andre MD NO ADDRESS ON FILE SCREENING MAMM-MAILG NEOPL-OTHER (Primary Dx) Social History Tobacco Use Types Packs/Day Years Used Date Smoking Tobacco: Never Assessed Comments Unknown Sex and Gender Information Value Date Recorded Sex Assigned at Not on file 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
--- OUTSIDE RECORDS SUMMARY | 2025-04-15 10:47 | XMS_ITS | Encounter Summary ---
Author Organization [facility] Address [address] [place] [address] Care Team Providers Care Cable Maker Name Role Phone HAYLEE Moura Sr., Michael Dave Primary Care Pro vider Encounter Details Date Type Department Care Team (Latest Contact Info) Description 04/12/2006 Outpatient Historical [facility] Deejay [place] [address] [place] [address] Brendan West MD NO ADDRESS ON FILE Other Screening Mammogram (Primary Dx) Social History Tobacco Use Types Packs/Day Years Used Date Smoking Tobacco: Never Assessed Comments Unknown Sex and Gender Information Value Date Recorded Sex Assigned at Not on file 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
--- OUTSIDE RECORDS SUMMARY | 2025-04-15 10:47 | XMS_ITS | Encounter Summary ---
Author Organization [facility] Address [address] Attn: [place] [address] Care Team Providers Care Cdl Service Technician Name Role Phone HAYLEE Moura Sr., Govind Tejeda Primary Care Pro vider Encounter Details Date Type Department Care Team (Late st Contact Info) Description 03/20/2002 Outpatient Historical Dawson Fajardo MD NO ADDRESS ON FILE Social History Tobacco Use Types Packs/Day Years Used Date Smoking Tobacco: Never Assessed Comments Unknown Sex and Gender Information Value Date Recorded Sex Assigned at Not on file Legal Sex Female 3:34 AM CLINICAL CYTOGENETICS DIRECTOR Gender Identity Not on file Sexual Orientation Not on file documented as of this encounter Plan of Treatment Not on file documented as of this encounter Visit Diagnoses Not on filedocumented in this encounter Care Teams Cdl Service Technician Relationship Specialty Start Date End Date Govind Moura Sr., FNP [address] [place] [address] PCP - General NURSE PRACTITIONER 05/11/16 documented as of this encounter
--- OUTSIDE RECORDS SUMMARY | 2025-04-15 10:47 | XMS_ITS | Encounter Summary ---
Author Organization [facility] Address [address] [place] [address] Care Team Providers Care Fighting Vehicle Systems Maintainer Name Role Phone HAYLEE Moura Sr., Michael Dave Primary Care Pro vider Encounter Details Date Type Department Care Team (Latest Contact Info) Description 03/20/2002 Outpatient Historical [facility] [place] [address] [place] [address] Dawson Fajardo MD NO ADDRESS ON FILE LUMBAGO (Primary Dx) Social History Tobacco Use Types Packs/Day Years Used Date Smoking Tobacco: Never Assessed Comments Unknown Sex and Gender Information Value Date Recorded Sex Assigned at Not on file 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
--- OUTSIDE RECORDS SUMMARY | 2025-04-15 10:47 | XMS_ITS | Encounter Summary ---
Author Organization [facility] Address [address] [place] [address] Care Team Providers Care Flex O Writer Operator Name Role Phone HAYLEE Moura Sr., Govind Tejeda Primary Care Pro vider Encounter Details Date Type Department Care Team (Latest Contact Info) Description 10/12/2002 Outpatient [facility] [address] [place] [address] Brendan West MD NO ADDRESS ON FILE JOINT PAIN-UNSPEC (Primary Dx); Enthesopathy of hip Social History Tobacco Use Types Packs/Day Years Used Date Smoking Tobacco: Never Assessed Comments Unknown Sex and Gender Information Value Date Recorded Sex Assigned at Not on file 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
--- OUTSIDE RECORDS SUMMARY | 2025-04-15 10:47 | XMS_ITS | Encounter Summary ---
Author Organization [facility] Address [address] [place] [address] Care Team Providers Care Presser And Shaper Knitted Goods Name Role Phone HAYLEE Moura Sr., Michael Dave Primary Care Pro vider Encounter Details Date Type Department Care Team (Late st Contact Info) Description 04/14/2008 Outpatient Historical [facility] Deejay [place] [address] [place] [address] Brendan West MD NO ADDRESS ON FILE Social History Tobacco Use Types Packs/Day Years Used Date Smoking Tobacco: Never Assessed Comments No Sex and Gender Information Value Date Recorded Sex Assigned at Not on file Legal Sex Female 3:34 AM CANDY DIPPER Gender Identity Not on file Sexual Orientation Not on file documented as of this encounter Plan of Treatment Not on file documented as of this encounter Visit Diagnoses Not on filedocumented in this encounter Care Teams Presser And Shaper Knitted Goods Relationship Specialty Start Date End Date Govind Moura Sr., FNP [address] [place] [address] PCP - General NURSE PRACTITIONER 05/11/16 documented as of this encounter
--- OUTSIDE RECORDS SUMMARY | 2025-04-15 10:47 | XMS_ITS | Encounter Summary ---
Author Organization [facility] Address [address] [place] [address] Care Team Providers Care Cyber Defense Forensics Analyst Name Role Phone HAYLEE Moura Sr., Michael Dave Primary Care Pro vider Encounter Details Date Type Department Care Team (Latest Contact Info) Description 04/14/2007 Outpatient Historical [facility] Terrance Villalba [place] [address] [place] [address] Kennedy Barker MD NO ADDRESS ON FILE Other Screening Mammogram (Primary Dx) Social History Tobacco Use Types Packs/Day Years Used Date Smoking Tobacco: Never Assessed Comments Unknown Sex and Gender Information Value Date Recorded Sex Assigned at Not on file 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
--- OUTSIDE RECORDS SUMMARY | 2025-04-15 10:47 | XMS_ITS | Encounter Summary ---
Author Organization [facility] Address [address] [place] [address] Care Team Providers Care Fish Cutting Machine Operator Name Role Phone HAYLEE Moura Sr., Govind Tejeda Primary Care Pro vider Encounter Details Date Type Department Care Team (Late st Contact Info) Description 07/28/2007 Outpatient Historical [facility] [address] [place] [address] Loren Bull, Braulio Soliz MD NO ADDRESS ON FILE Social History Tobacco Use Types Packs/Day Years Used Date Smoking Tobacco: Never Assessed Comments Unknown Sex and Gender Information Value Date Recorded Sex Assigned at Not on file Legal Sex Female 3:34 AM 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 OR 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 Gender Identity Not on file Sexual Orientation Not on file documented as of this encounter Plan of Treatment Not on file documented as of this encounter Procedures Procedure Name Priority Date/Time Associated Diagnosis Comments XR DEXA BONE DENSITY AXIAL 1 OR MORE SITES Routine 08/13/2007 9:50 AM FRUIT OR NUT FARMWORKER documented in this encounter Results * XR DEXA BONE DENSITY AXIAL (08/13/2007 9:50 AM FRUIT OR NUT FARMWORKER) Anatomical Region Laterality Modality Other 08/13/2007 9:50 AM FRUIT OR NUT FARMWORKER Narrative 08/13/2007 10:24 AM FRUIT OR NUT FARMWORKER 08/13/2007 Reason for Consultation: Osteopenia. For determination [...] age- matched control. jaw Procedure Note Tristan Dwoney - 10/17/2007 08/13/2007 Reason for Consultation: Osteopenia. [...] MD DIAGNOSTIC IMAGING ORDERABL ES Final Result documented in this encounter Visit Diagnoses Not on filedocumented in this encounter Care Teams Fish Cutting Machine Operator Relationship Specialty Start Date End Date Martell Tadeo, HAYLEE Loving [address] [place] [address] PCP - General NURSE PRACTITIONER 05/11/16 documented as of this encounter
--- OUTSIDE RECORDS SUMMARY | 2025-04-15 10:47 | XMS_ITS | Encounter Summary ---
Author Organization [facility] Address [address] [place] [address] Care Team Providers Care Director Of Therapy Services Name Role Phone HAYLEE Moura Sr., Michael Dave Primary Care Pro vider Encounter Details Date Type Department Care Team (Latest Contact Info) Description 03/26/2003 Outpatient [facility] [address] [place] [address] Brendan West MD NO ADDRESS ON FILE Routine medical exam (Primary Dx); VACCINE FOR STREP PNEUMONIAE; CHEST PAIN NOS; VACCINE FOR TETANUS + DIPHTHERIA Social History Tobacco Use Types Packs/Day Years Used Date Smoking Tobacco: Never Assessed Comments Unknown Sex and Gender Information Value Date Recorded Sex Assigned at Not on file 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 Female 3:34 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 Gender Identity Not on file Sexual Orientation Not on file documented as of this encounter Plan of Treatment Not on file documented as of this encounter Visit Diagnoses Diagnosis Routine medical exam- Primary Routine general medical examination at a health care facility Need for prophylactic vaccination against Streptococcus pneumoniae (pneumococcus) Need for prophylactic vaccination against streptococcus pneumoniae (pneumococcus) Chest pain, unspecified Need for prophylactic vaccination with tetanus-diphtheria (Td) documented in this encounter Care Teams Director Of Therapy Services Relationship Specialty Start Date End Date Govind Moura Sr., FNP [address] [place] [address] PCP - General NURSE PRACTITIONER 05/11/16 documented as of this encounter
--- OUTSIDE RECORDS SUMMARY | 2025-04-15 10:47 | XMS_ITS | Encounter Summary ---
Author Organization [facility] Address [address] [place] [address] Care Team Providers Care Retail Performance Specialist Name Role Phone HAYLEE Moura Sr., Michael Dave Primary Care Pro vider Encounter Details Date Type Department Care Team (Latest Contact Info) Description 09/02/2001 Outpatient Historical [facility] [place] [address] [place] [address] Brendan West MD NO ADDRESS ON FILE ABDOMINAL PAIN EPIGASTRIC (Primary Dx) Social History Tobacco Use Types Packs/Day Years Used Date Smoking Tobacco: Never Assessed Comments Unknown Sex and Gender Information Value Date Recorded Sex Assigned at Not on file 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
--- OUTSIDE RECORDS SUMMARY | 2025-04-15 10:47 | XMS_ITS | Encounter Summary ---
Author Organization [facility] Address [address] [place] [address] Care Team Providers Care Geek Squad [employer] Name Role Phone HAYLEE Moura Sr., Michael Dave Primary Care Pro vider Encounter Details Date Type Department Care Team (Latest Contact Info) Description 09/09/[address] [facility] [address] [place] [address] Brendan West MD NO ADDRESS ON FILE Unspecified Disorders of Bursae and Tendons in Shoulder Region (Primary Dx) Social History Tobacco Use Types Packs/Day Years Used Date Smoking Tobacco: Never Assessed Comments Unknown Sex and Gender Information Value Date Recorded Sex Assigned at Not on file Legal Sex Female 3:34 AM TERRITORY ACCOUNT REPRESENTATIVE Gender Identity Not on file Sexual Orientation Not on file documented as of this encounter Plan of Treatment Not on file documented as of this encounter Visit Diagnoses Diagnosis Disorders of bursae and tendons in shoulder region, unspecified- Primary documented in this encounter Care Teams Geek [employer] Relationship Specialty Start Date End Date Govind Moura Sr., FNP [address] [place] [address] PCP - General NURSE PRACTITIONER 05/11/16 documented as of this encounter
--- OUTSIDE RECORDS SUMMARY | 2025-04-15 10:47 | XMS_ITS | Encounter Summary ---
Author Organization [facility] Address [address] [place] [address] Care Team Providers Care School Program Director Name Role Phone HAYLEE Moura Sr., Michael Dave Primary Care Pro vider Encounter Details Date Type Department Care Team (Latest Contact Info) Description 08/01/2005 Outpatient Historical [facility] Urology [facility] [address] [place] [address] Washington Hawkins MD NO ADDRESS ON FILE FEMALE STRESS INCONTINENCE (Primary Dx) Social History Tobacco Use Types Packs/Day Years Used Date Smoking Tobacco: Never Assessed Comments Unknown Sex and Gender Information Value Date Recorded Sex Assigned at Not on file Legal Sex Female 3:34 AM DATA CONTROL CLERK SUPERVISOR Gender Identity Not on file Sexual Orientation Not on file documented as of this encounter Plan of Treatment Not on file documented as of this encounter Visit Diagnoses Diagnosis Female stress incontinence- Primary documented in this encounter Care Teams School Program Director Relationship Specialty Start Date End Date Govind Moura Sr., FNP [address] [place] [address] PCP - General NURSE PRACTITIONER 05/11/16 documented as of this encounter
--- OUTSIDE RECORDS SUMMARY | 2025-04-15 10:47 | XMS_ITS | Encounter Summary ---
Author Organization [facility] Address [address] [place] [address] Care Team Providers Care Senior Sustainability Advisor Name Role Phone HAYLEE Moura Sr., Govind Tejeda Primary Care Pro vider Encounter Details Date Type Department Care Team (Latest Contact Info) Description 03/06/2002 [facility] [place] [address] [place] [address] Dawson Fajardo MD NO ADDRESS ON FILE Gynecologic examination (Primary Dx); BACKACHE NOS Social History Tobacco Use Types Packs/Day Years Used Date Smoking Tobacco: Never Assessed Comments Unknown Sex and Gender Information Value Date Recorded Sex Assigned at Not on file Legal Sex Female 3:34 AM LADIES LOCKER ROOM ATTENDANT Gender Identity Not on file Sexual Orientation Not on file documented as of this encounter Plan of Treatment Not on file documented as of this encounter Visit Diagnoses Diagnosis Gynecologic examination- Primary Gynecological examination Backache, unspecified documented in this encounter Care Teams Senior Sustainability Advisor Relationship Specialty Start Date End Date Govind Moura Sr., FNP [address] [place] [address] PCP - General NURSE PRACTITIONER 05/11/16 documented as of this encounter
--- OUTSIDE RECORDS SUMMARY | 2025-04-15 10:47 | XMS_ITS | Encounter Summary ---
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); Other and Unspecified Hyperlipidemia; Unspecified Hypothyroidism; Dysthymic Disorder Social History Tobacco Use Types Packs/Day Years Used Date Smoking Tobacco: Never Assessed Comments Unknown Sex and Gender Information Value Date Recorded Sex Assigned at Not on file Legal Sex Female 3:34 AM BUSINESS PROCESS COORDINATOR Gender Identity Not on file Sexual Orientation Not on file documented as of this encounter Plan of Treatment Not on file documented as of this encounter Visit Diagnoses Diagnosis Neoplasm of unspecified nature of breast- Primary Other and unspecified hyperlipidemia Unspecified hypothyroidism Dysthymic disorder documented in this encounter Care Teams Sports Apparel Internship Relationship Specialty Start Date End Date Govind Moura Sr., FNP [address] [place] [address] PCP - General NURSE PRACTITIONER 05/11/16 documented as of this encounter
--- OUTSIDE RECORDS SUMMARY | 2025-04-15 10:47 | XMS_ITS | Encounter Summary ---
Author Organization [facility] Address [address] [place] [address] Care Team Providers Care Program Evaluator Name Role Phone HAYLEE Moura Sr., Michael Dave Primary Care Pro vider Encounter Details Date Type Department Care Team (Latest Contact Info) Description 03/25/[address] [facility] Terrance Villalba [place] [address] [place] [address] Mary Dias MD NO ADDRESS ON FILE SCREENING MAMM-MAILG NEOPL-OTHER (Primary Dx) Social History Tobacco Use Types Packs/Day Years Used Date Smoking Tobacco: Never Assessed Comments Unknown Sex and Gender Information Value Date Recorded Sex Assigned at Not on file Legal Sex Female 3:34 AM CITY DIRECTOR Gender Identity Not on file Sexual Orientation Not on file documented as of this encounter Plan of Treatment Not on file documented as of this encounter Visit Diagnoses Diagnosis Other screening mammogram- Primary documented in this encounter Care Teams Program Evaluator Relationship Specialty Start Date End Date Govind Moura Sr., FNP [address] [place] [address] PCP - General NURSE PRACTITIONER 05/11/16 documented as of this encounter
--- OUTSIDE RECORDS SUMMARY | 2025-04-15 10:47 | XMS_ITS | Encounter Summary ---
Author Organization [facility] Address [address] [place] [address] Care Team Providers Care Photostat Operator Helper Name Role Phone HAYLEE Moura Sr., Michael Dave Primary Care Pro vider Encounter Details Date Type Department Care Team (Latest Contact Info) Description 04/12/2006 Outpatient Historical [facility] Terrance Villalba [place] [address] [place] [address] Mary Dias MD NO ADDRESS ON FILE Other Screening Mammogram (Primary Dx) Social History Tobacco Use Types Packs/Day Years Used Date Smoking Tobacco: Never Assessed Comments Unknown Sex and Gender Information Value Date Recorded Sex Assigned at Not on file 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
--- OUTSIDE RECORDS SUMMARY | 2025-04-15 10:47 | XMS_ITS | Encounter Summary ---
Author Organization [facility] Address [address] [place] [address] Care Team Providers Care Orthotic Aide Name Role Phone HAYLEE Moura Sr., Govind Tejeda Primary Care Pro vider Encounter Details Date Type Department Care Team (Latest Contact Info) Description 02/06/2006 Outpatient [facility] [address] [place] [address] Brendan West MD NO ADDRESS ON FILE Unspecified Hypothyroidism (Primary Dx); Other and Unspecified Hyperlipidemia; Neoplasm of Unspecified Nature of Breast; Dysthymic Disorder Social History Tobacco Use Types Packs/Day Years Used Date Smoking Tobacco: Never Assessed Comments Unknown Sex and Gender Information Value Date Recorded Sex Assigned at Not on file 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
[2025-04-15 11:00] VITALS: BP 131/74; PULSE 72; RESP 16; TEMP 37.1; O2SAT 98; BMI 22.6
--- NOTE | 2025-04-15 11:28 | XR_ITS ---
WS: [id number] XR hip LT 2-3V wo/w pel* [id number] REASON FOR EXAM: Trauma FINDINGS: No acute fracture. Femoral neck and intertrochanteric region intact. Inferior pubic rami and acetabulum intact. Mild osteoarthritis for age. XR/XR hip LT 2-3V wo/w pel* [id number] IMPRESSION: No acute abnormality.
--- NOTE | 2025-04-15 12:05 | CT_ITS ---
WS: [id number] CT bony pelvis [id number] REASON FOR EXAM: Fall, unable to bear weight left hip? Occult fracture IV CONTRAST ADMINISTERED: None. TECHNIQUE: Multiple axial images without intravenous contrast. Coronal and sagittal reconstructions. COMPARISON EXAM: None TOTAL EXAM DLP: 272.[address] scans at [facility] use at least one of these dose optimization techniques: automated exposure control; mA and/or kV adjustment per patient size (includes targeted exams where dose is matched to clinical indication); or iterative reconstruction. FINDINGS: No acute fracture of the sacrum, iliac wings, or acetabulum. No acute left hip fracture is identified. Small nondisplaced noncomminuted fracture of the inferior pubic ramus between the ischial tuberosity and pubic symphysis. CT/CT bony pelvis [id number] IMPRESSION: Occult fracture of the inferior pubic ramus as above.
--- NOTE | 2025-04-15 12:07 | PC.NURSE ---
pt was unable to bear full weight to LLE, states upon standing was feeling dizzy. Dr. Kirby notified
--- NOTE | 2025-04-15 12:30 | W.ED.FALL ---
HPI - Fall General: Chief Complaint: Fall Stated Complaint: fall Time Seen by Provider: 04/15/25 10:45 History of Present Illness: 84-year-old female presents emergency room she was sitting and at home in her chair yesterday she got up to grab her phone when she stood she got lightheaded and dizzy and fell she did not strike her head there is no loss consciousness she is complaining of some left hip pain she has to be able to partially bear weight on it but it is more sore this morning than yesterday. She denies any other injuries. She states she otherwise feels fine she had no chest no loss of consciousness Associated symptoms-after fall: Denies abdominal pain, chest pain or neck pain Related Data Previous Rx's ?Medication ?Instructions ?Recorded diclofenac sodium 1 % topical gel 4 g topical QID #100 grams 05/28/22 clonidine HCl 0.1 mg tablet 0.1 mg PO Q4H PRN Blood pressure 10/25/23 greater than 160/100 #30 tabs amlodipine 10 mg tablet 10 mg PO DAILY #90 tabs 08/10/24 azelastine 137 mcg (0.1 %) nasal 2 spray intranasal ONCE #30 mL 08/10/24 spray furosemide 20 mg tablet (Lasix) 20 mg PO DAILY PRN as needed for 08/10/24 swelling #30 tabs hydroxychloroquine 200 mg tablet 200 mg PO DAILY #90 tabs 08/10/24 pseudoephedrine HCl 60 mg tablet 60 mg PO Q6H PRN nasal congestion 12/08/24 #16 tabs sertraline 50 mg tablet 50 mg PO QDAY #90 tabs 12/08/24 levocetirizine 5 mg tablet 5 mg PO DAILY #90 tabs 12/22/24 hydrochlorothiazide 25 mg tablet 25 mg PO QAM #90 tabs 03/05/25 amoxicillin 500 mg tablet 500 mg PO TID #15 tabs 04/14/25 meclizine 12.5 mg tablet 12.5 mg PO TID PRN dizziness #10 04/14/25 tabs triamcinolone acetonide 55 mcg 2 spray intranasal DAILY #16.9 mL 04/14/25 nasal spray aerosol (Nasacort) hydrocodone 5 mg-acetaminophen 325 0.5 tab PO Q6H PRN pain #10 tabs 04/15/25 mg tablet levothyroxine 88 mcg tablet 88 mcg PO DAILY #90 tabs 04/16/25 Allergies Allergy/AdvReac Type Severity Reaction Status Date / Time rosuvastatin (From Crestor) Allergy Unknown Verified 04/15/25 09:47 Sulfa (Sulfonamide Allergy Unknown Verified 04/15/25 09:47 Antibiotics) Review of Systems Const: Denies: fever(s) or chills Card: Denies: chest pain Resp: Denies: dyspnea GI: Denies: abdominal pain : Denies: dysuria, urinary frequency or urinary urgency Musc: Denies: neck pain or back pain Skin/Breast: Denies: rash PFSH ED PFSH: Medical History Acute sinusitis Osteopenia Seasonal allergies Seronegative rheumatoid arthritis Moderate major depression Hypothyroidism Essential hypertension Osteopenia after menopause Osteoarthritis of hands, bilateral Inflammatory arthritis Vulva neoplasm surgical excision 2011 Surgical History History of hysterectomy History of knee surgery right Family History Other CAD (coronary artery disease) Hyperlipidemia Hypertension Rheumatoid arthritis Stroke Denies family history of Diabetes Lupus Chronic kidney disease (CKD) Cancer Social History Smoking and tobacco/nicotine status: never used tobacco/nicotine Alcohol intake: never Physical Exam Const: GENERAL APPEARANCE: cooperative ORIENTATION/CONSCIOUSNESS: Yes awake, Yes oriented to person, Yes oriented to place and Yes oriented to time HENMT: COMMON NORMALS: normocephalic, atraumatic and hearing grossly normal bilaterally HEAD & SCALP: normocephalic and atraumatic Resp: COMMON NORMALS: normal respiratory effort, No retractions, No use of accessory muscles and clear to auscultation bilaterally AUSCULTATION: clear to auscultation bilaterally Cardio: COMMON NORMALS: regular rate, regular rhythm and No murmurs present (Cardio) RATE: regular rate RHYTHM: regular rhythm GI: COMMON NORMALS: Soft to palpation and No hepatosplenomegaly present AUSCULTATION: Yes normoactive bowel sounds PALPATION: Yes Soft to palpation, No Tenderness to palpation present (GI), No Guarding due to palpation present (GI) and Yes No hepatosplenomegaly present Extremity: COMMON NORMALS: normal to inspection, capillary refill normal, no clubbing, cyanosis or edema, no calf tenderness and no pedal edema Neuro: SENSORIUM/ORIENTATION: Yes oriented to person, Yes oriented to place and Yes oriented to time Skin: COMMON NORMALS: no rashes or lesions noted GENERAL SKIN EXAM: no rashes or lesions noted Course Vital Signs: Vital signs: Vital Signs Temperature 98.7 F 04/15/25 11:00 Pulse Rate 77 04/15/25 13:50 Respiratory Rate 16 04/15/25 11:00 Blood Pressure 172/82 04/15/25 13:50 Pulse Oximetry 98 04/15/25 13:50 Oxygen Delivery Me thod Room Air 04/15/25 11:00 MDM - Fall Medical Decision Making Initial x-rays unremarkable trial to have the patient's stand to walk she is unable to walk without significant pain can only partially bear weight on the left side. CT shows nondisplaced inferior pubic ramus fracture. Discharge patient home with hydrocodone for pain she has a walker at home. We discussed possible assisted placement for assistance with ADLs and rehab patient declines a follow-up with Ortho. Lab Data Radiology Impressions Hip/Pelvis X-Ray 04/15/25 11:28 IMPRESSION: No acute abnormality. Pelvis CT 04/15/25 12:05 IMPRESSION: Occult fracture of the inferior pubic ramus as above. All radiology interpretation(s) finalized by discharge Discharge Plan Discharge Patient Disposition: Home Clinical Impression: Closed fracture of left inferior pubic ramus Condition: Stable Prescriptions: New hydrocodone-acetaminophen 5-325 mg tablet 0.5 tab PO Q6H PRN (Reason: pain) Qty: 10 0RF No Action pseudoephedrine HCl 60 mg tablet 60 mg PO Q6H PRN (Reason: nasal congestion) Qty: 16 0RF sertraline 50 mg tablet 50 mg PO QDAY Qty: 90 1RF amoxicillin 500 mg tablet 500 mg PO TID Qty: 15 0RF triamcinolone acetonide [Nasacort] 55 mcg aerosol,spray 2 spray intranasal DAILY Qty: 16.9 0RF Rx Instructions: administer into each nostril meclizine 12.5 mg tablet 12.5 mg PO TID PRN (Reason: dizziness) Qty: 10 0RF furosemide [Lasix] 20 mg tablet 20 mg PO DAILY PRN (Reason: as needed for swelling) Qty: 30 0RF Rx Instructions: do not take AFTER 3PM. amlodipine 10 mg tablet 10 mg PO DAILY Qty: 90 1RF azelastine 137 mcg (0.1 %) spray,non-aerosol 2 spray intranasal ONCE Qty: 30 2RF hydroxychloroquine 200 mg tablet 200 mg PO DAILY Qty: 90 1RF hydrochlorothiazide 25 mg tablet 25 mg PO QAM Qty: 90 1RF diclofenac sodium 1 % gel 4 g topical QID Qty: 100 3RF Rx Instructions: apply to affected area as needed levocetirizine 5 mg tablet 5 mg PO DAILY Qty: 90 1RF levothyroxine 88 mcg tablet 88 mcg PO DAILY Qty: 90 1RF clonidine HCl 0.1 mg tablet 0.1 mg PO Q4H PRN (Reason: Blood pressure greater than 160/100) Qty: 30 0RF Discharge Orders: Discharge ED (Routine); Ordered 04/15/25 Ordered By: Aron Kirby Other Ambulatory Orders: DME: Walker (Order) Location: None Selected Ordered By: Aron Kirby Referrals: Danny Downing MD [Primary Care Provider, Family Practice] Discharge Diet: Usual diet Discharge Activity: Limit activity as instructed Patient Instructions: Pelvic Fracture (ED), Opioid Safety, Pain Management, Patient Portal & Sherice Instructions Activity Restrictions/Additional Instructions: Thank you for choosing [facility] for your healthcare needs today. It is very important that you follow up as instructed or that you return to the Emergency Department should you have concerns or if your condition changes or worsens in any way. Emergency department visits are focused on emergent conditions, in some cases you may require further evaluation on an outpatient basis. You were seen in the emergency room after a fall. Your x-rays did not show any acute fractures present you are unable to fully bear weight we did a CT of your pelvis which showed an inferior pubic rami fracture. These fractures are typically treated conservatively. It will be difficult to walk specially for the first few weeks. Recommend use of walker to prevent any further falls. You are given pain medications to use as needed he has a half a tablet every 6 hours as needed. You can take a full tablet at night before bed. If you have any further problems return to the emergency room. Case management make arrangements for you to follow-up with orthopedics. (Please note that included in your discharge packet is information concerning opioid safety and pain management. This information is given to all patients were discharged from the ER regardless of their discharge diagnosis or the medicines they usually take or are prescribed.) Print Language: Swedish Coding Level of Care Code ED Hide And Skin Fleshing Machine Operator for Lorenzo Beck
[2025-04-15 12:56] VITALS: BP 161/68; PULSE 71; O2SAT 100
[2025-04-15 13:26] VITALS: BP 148/66; BP 156/88; BP 161/68; PULSE 79; PULSE 80; PULSE 81
[2025-04-15 13:50] VITALS: BP 172/82; PULSE 77; O2SAT 98
--- NOTE | 2025-04-23 10:37 | DCPLANNER ---
messaged ortho for er f/u
== END 2025-04-15 13:51 | disposition home or self-care (01) ==
PROVIDERS: Emergency Provider Family Medicine; PCP Family Medicine
DX: S32.592A Other specified fracture of left pubis, initial encounter for closed fracture (principal); I10 Essential (primary) hypertension; W19.XXXA Unspecified fall, initial encounter
CPT/HCPCS: 72192; 73502; 96360; 99284; J7040

== ENCOUNTER → 2025-07-05 10:30 | Outpatient (BNVA) | payer MEDICARE, SELFPAY | PROVIDERS: PCP Family Medicine; Visit Provider Family Medicine | DX: M06.00 Rheumatoid arthritis without rheumatoid factor, unspecified site (principal) | CPT/HCPCS: 80053; 84439; 84443; 85025 ==